=== PATIENT | female | born 1985 | race Caucasian/White ===

== ENCOUNTER 2021-04-10 19:59 | Emergency (ER) | payer OTHER, SELFPAY ==
[2021-04-10 20:24] VITALS: BP 107/78; PULSE 94; RESP 16; TEMP 36.4; O2SAT 98
--- NOTE | 2021-04-10 23:00 | PC.NURSE ---
decontamination technician assisted pt to restroom as pt stated she was unable to walk.
--- NOTE | 2021-04-11 01:25 | PC.NURSE ---
dietetic technician registered assisting pt to restroom.
--- NOTE | 2021-04-11 01:52 | ED.ABDPAIN ---
HPI - Abdominal Pain General Chief Complaint: Abdominal Pain Stated Complaint: n/v, abdominal pain X2 days Time Seen by Provider: 04/11/21 01:46 Source: RN notes reviewed History of Present Illness HPI narrative: Patient presents to emergency department from home for nausea vomiting diarrhea. Patient states that she has a chronic history of nausea vomiting and diarrhea since 2019 states she has been worked up in ERs before in the past and was told this was secondary to marijuana use states she quit using marijuana 2 weeks ago she states that she is post be seen a specialist at [facility] but cannot get in for another 2 and half months patient states that she has been having upper abdominal pain in the bilateral upper abdomen described as sharp and stabbing in nature associate with nausea vomiting and diarrhea with several episodes a day.. She states that she did take Zofran at 1030 this morning but not take any other medication she denies any fevers or chills chest pain shortness of breath or any other symptoms Related Data Allergies Allergy/AdvReac Type Severity Reaction Status Date / Time No Known Allergies Allergy Verified 04/10/21 20:29 Review of Systems Review of Systems: Gen.: Denies fevers or chills ENT: Denies congestion Respiratory: Denies shortness of breath or cough CV: Denies chest pain or palpitations GI: See HPI denies burning, urgency, frequency or hematuria Musculoskeletal: Denies back pain or muscle pain Neuro: Denies numbness, tingling, weakness or focal weakness Skin: Denies rash Except as documented, all other systems reviewed and negative [facility] Past Medical History Medical History (Updated 04/11/21 @ 05:53 by Damian Travis DO) Patient denies significant medical history Social History Social History (Updated 04/11/21 @ 01:53 by Damian Travis DO) Smoking status: Never smoker Exam Narrative: APPEARANCE: No acute distress, nontoxic, resting in bed HEENT: Normocephalic, atraumatic, OMM RESPIRATORY: No respiratory distress, clear to auscultation bilaterally with no rhonchi wheezing or rales CARDIOVASCULAR: RRR s murmur ABDOMINAL: Soft nondistended tender palpation epigastric and right upper quadrant left upper quadrant no tenderness right lower quadrant left lower quadrant no rebound or guard MUSCULOSKELETAl: Moves all extremities. No clubbing, cyanosis or edema. NEURO: Awake and alert. Following commands, speech normal, no focal deficits SKIN:: Warm, dry. Normal Color PSYCHIATRIC: Normal affect/mood Course Course Emergency Course: Patient states she is feeling much better at this time. States abdominal pain has resolved repeat abdominal exam soft nontender Patient able to drink in ED with no difficulty. Given p.o. potassium in ED shows IV potassium Patient states that they are feeling much better at this time. States abdominal pain has resolved. Repeat abdominal exam shows the patient's abdomen to be soft and nontender. Discussed with patient results of workup and diagnosis. Discussed need for follow-up with primary care physician, reasons to return to the emergency department in proper use of medication. Patient understands and agrees to current treatment plan Vital Signs Vital signs: Vital Signs Temperature 97.6 F 04/10/21 20:24 Pulse Rate 94 04/10/21 20:24 Respiratory Rate 16 04/10/21 20:24 Blood Pressure 107/78 04/10/21 20:24 Pulse Oximetry 98 04/10/21 20:24 Temperature 97.6 F 04/10/21 20:24 Pulse Rate 94 04/10/21 20:24 Respiratory Rate 16 04/10/21 20:24 Blood Pressure 107/78 04/10/21 20:24 Pulse Oximetry 98 04/10/21 20:24 MDM - Abdominal Pain MDM Narrative Medical decision making narrative: Patient's abdomen is soft without significant pain or signs of surgical abdomen on serial exams. Lab and x-ray evaluations are reviewed and patient is felt to be a reasonable candidate for outpatient management. Patient was instruct
[2021-04-11] MEDS: ONDANSETRON INJ 4 MG/2 ML VIAL IV PUSH (02:00)
[2021-04-11] MEDS: KETOROLAC 30 MG/ML VIAL (*BKC) IV PUSH (02:00)
[2021-04-11] MEDS: FAMOTIDINE 20 MG/2 ML VIAL IV PUSH (02:00)
[2021-04-11] MEDS: SODIUM CHLORIDE 0.9% IV 1,000 ML 999 ML IV CONT (02:01)
[2021-04-11 02:30] LABS: Basophils Absolute Auto 0.1 K/mm3 (0.0-0.1); Basophils Percent Auto 0.6 % (0.2-1.2); Eosinophils Absolute Auto 0.1 K/mm3 (0-0.3); Eosinophils Percent Auto 0.7 % (0-4.4); Hematocrit 36.7 % (37.0-47.0); Hemoglobin 12.5 g/dL (12.0-15.0); Immature Granulocyte Absolute 0.02 K/mm3 (0.00-0.031); Immature Granulocyte Percent A 0.2 % (0-0.5); Lymphocytes Absolute Auto 2.16 K/mm3 (0.9-3.2); Lymphocytes Percent Auto 26.1 % (18.3-44.2); Mean Corpuscular HGB Conc 34.1 g/dl (32-36); Mean Corpuscular Hemoglobin 31.6 pg (26-34); Mean Corpuscular Volume 92.9 fl (80-100); Monocytes Absolute Auto 0.7 K/mm3 (0.1-0.6); Monocytes Percent Auto 7.9 % (2.6-8.5); Neutrophils Absolute Auto 5.3 K/mm3 (1.3-6.7); Neutrophils Percent Auto 64.5 % (45.5-73.1); Platelet Count Result 226 k/mm3 (150-375); Red Blood Count 3.95 M/mm3 (4.2-5.4); White Blood Count 8.3 K/mm3 (4.5-10.0)
--- NOTE | 2021-04-11 02:41 | ECG_ITS ---
Measurements Intervals Nesbit Rate: 56 P: 80 UT: 134 QRS: 73 QRSD: 73 T: 52 QT: 431 QTc: 418 Interpretive Statements SINUS BRADYCARDIA WITH MARKED SINUS ARRHYTHMIA BORDERLINE ECG Electronically Signed On 04-11-2021 7:42:45 [employer] by Neal Martinez D.O.
[2021-04-11 02:42] LABS: Alanine Aminotransferase 18 U/L (4-35); Albumin Level 3.8 g/dL (3.5-5.1); Alkaline Phosphatase 52 U/L (38-126); Anion Gap 4 mmol/L (8-16); Aspartate Amino Transferase 21 U/L (14-36); Bilirubin,Total 0.6 mg/dL (0.2-1.3); Blood Urea Nitrogen 10 mg/dL (7-17); Carbon Dioxide 30 mmol/L (22-30); Chloride 100 mmol/L (98-107); Estimated CRCL calculation 69 ml/min; Estimated Glomerular Filt Rate > 60; Glucose 106 mg/dL (65-110); Lipase 110 U/L (23-300); Potassium 2.8 mmol/L (3.4-5.0); Sodium 134 mmol/L (137-145)
[2021-04-11 03:08] LABS: Magnesium 1.8 mg/dL (1.6-2.3)
[2021-04-11 04:05] LABS: Add Urine Microscopic? YES; Amorphous Sediment Urine Few; Appearance Urine Cloudy (Clear); Bacteria Urine Trace /hpf; Bilirubin Urine Negative (Negative); Blood Urine Negative (Negative); Color Urine Yellow (Yellow); Glucose Urine UA Negative (Negative); Ketones Urine Negative (Negative); Leukocyte Esterase Ur 2+ LEU/UL (Negative); Nitrate Urine Negative (Negative); Protein Urine Negative (Negative); RBC Urine 0-2 /hpf (0-2); Specific Grav Ur 1.011 (1.001-1.035); Squamous Epithelial Cell Urine Moderate /hpf (Few); Urobilinogen Urine Negative mg/dL (<2.0); WBC Urine 51-75 /hpf
[2021-04-11] MEDS: POTASSIUM CHLORIDE 20 MEQ TABLET 40 MEQ PO (04:06)
[2021-04-11 06:21] VITALS: PULSE 83; RESP 18; O2SAT 100
== END 2021-04-11 06:22 | disposition home or self-care (01) ==
PROVIDERS: Emergency Provider Emergency Medicine; PCP Physician Assistant
DX: R11.2 Nausea with vomiting, unspecified (principal); E87.6 Hypokalemia; N39.0 Urinary tract infection, site not specified; R10.10 Upper abdominal pain, unspecified
CPT/HCPCS: 36415; 80053; 81001; 81025; 83690; 83735; 85025; 87086; 93005; 96361; 96365; 96366; 96375; 99284; A9270; J0696; J1885; J2405; J3480; J7030; J7040

== ENCOUNTER 2021-08-20 14:44 | Emergency (ER) | payer OTHER, SELFPAY ==
[2021-08-20 14:48] VITALS: BP 125/68; PULSE 58; RESP 18; TEMP 36.8; O2SAT 100
[2021-08-20 14:58] LABS: Basophils Percent Auto 0.2 % (0.2-1.2); Hematocrit 40.4 % (37.0-47.0); Hemoglobin 13.6 g/dL (12.0-15.0); Immature Granulocyte Absolute 0.05 K/mm3 (0.00-0.031); Immature Granulocyte Percent A 0.4 % (0-0.5); Lymphocytes Absolute Auto 0.23 K/mm3 (0.9-3.2); Lymphocytes Percent Auto 1.9 % (18.3-44.2); Mean Corpuscular HGB Conc 33.7 g/dl (32-36); Mean Corpuscular Hemoglobin 32.3 pg (26-34); Mean Platelet Volume 8.6 fl (7.4-10.4); Monocytes Absolute Auto 0.2 K/mm3 (0.1-0.6); Monocytes Percent Auto 1.8 % (2.6-8.5); Neutrophils Absolute Auto 11.4 K/mm3 (1.3-6.7); Neutrophils Percent Auto 95.7 % (45.5-73.1); Platelet Count Result 249 k/mm3 (150-375); Red Blood Count 4.21 M/mm3 (4.2-5.4); Red Cell Distribution Width 13.6 % (11.5-14.5); White Blood Count 11.9 K/mm3 (4.5-10.0)
[2021-08-20 15:14] LABS: Alanine Aminotransferase 24 U/L (6-35); Albumin Level 4.3 g/dL (3.5-5.1); Alkaline Phosphatase 65 U/L (38-126); Anion Gap 8 mmol/L (8-16); Aspartate Amino Transferase 51 U/L (14-36); Bilirubin,Total 0.7 mg/dL (0.2-1.3); Blood Urea Nitrogen 16 mg/dL (7-17); Calcium 8.9 mg/dL (8.4-10.2); Carbon Dioxide 25 mmol/L (22-30); Chloride 105 mmol/L (98-107); Estimated CRCL calculation 68 ml/min; Estimated Glomerular Filt Rate > 60; Glucose 137 mg/dL (65-110); Lipase 45 U/L (23-300); Potassium 3.7 mmol/L (3.4-5.0); Sodium 138 mmol/L (137-145)
[2021-08-20] MEDS: LACTATED RINGERS 1,000 ML 999 ML IV CONT (15:20)
[2021-08-20] MEDS: METOCLOPRAMIDE HCL INJ 10 MG/2 ML VIAL IV PUSH (15:21)
[2021-08-20] MEDS: KETOROLAC 30 MG/ML VIAL (*BKC) IV PUSH (15:22)
[2021-08-20] MEDS: DICYCLOMINE HCL INJ 20 MG/2 ML VIAL IM (15:23)
--- NOTE | 2021-08-20 16:12 | ED.ABDPAIN ---
HPI - Abdominal Pain General Chief Complaint: Abdominal Pain Stated Complaint: abd pain/vomiting/diarrhea Time Seen by Provider: 08/20/21 14:47 Source: patient Mode of arrival: ambulatory History of Present Illness HPI narrative: 36-year-old female with history of abdominal pain awaiting consult with GI presents today with abdominal pain, nausea, vomiting, diarrhea that started yesterday. Patient denies fever, body aches, chills, or sick contacts. Patient denies . Patient denies urinary symptoms. Patient states this episode was similar to her previous episodes. Patient rating pain 10 out of a 10. Currently uses marijuana but states it is not on a daily basis. Related Data Allergies Allergy/AdvReac Type Severity Reaction Status Date / Time No Known Allergies Allergy Verified 05/10/21 13:34 Review of Systems Review of Systems: CONSTITUTIONAL: Denies fever, chills, or sweats. EYES: Denies visual changes, redness, or discharge. ENT: Denies rhinorrhea, congestion, sore throat, or otalgia. CARDIOVASCULAR: Denies chest pain, palpitations, or edema. RESPIRATORY: Denies cough or dyspnea. GASTROINTESTINAL: Denies abdominal pain, nausea, vomiting, or diarrhea. GENITOURINARY: Denies dysuria or hematuria. SKIN: Denies rash or itching. MUSCULOSKELETAL: Denies back pain, joint pain, or myalgia. NEUROLOGIC: Denies headache, numbness, dizziness, or weakness. PSYCHIATRIC: Denies anxiety or depression. PMFSH Past Medical History Medical History (Updated 08/20/21 @ 17:09 by Kelly Henriquez APRN) Diarrhea Nausea and vomiting Patient denies significant medical history Social History Social History (Updated 05/10/21 @ 13:35 by Virginia Meng [facility]) Smoking status: Current some day smoker Alcohol intake: current Alcohol use details: social Substance use: never Exam Narrative: GENERAL: Well-appearing, well-nourished, and in no acute distress. HEAD: Normocephalic, atraumatic. EYES: PERRLA and EOMI. ENT: Nares clear, no rhinorrhea or epistaxis. Mucous membranes moist. Oropharynx without tonsillar hypertrophy exudate or other lesions. Bilateral TMs pearly abad nonbulging NECK: Supple. No adenopathy or masses. No carotid bruits or JVD CHEST: Clear to auscultation. No respiratory distress. No wheezes rales or rhonchi HEART: Regular rate and rhythm. No murmur heard. Normal peripheral pulses. ABDOMEN: unable to assess abdomen upon 1st assessment. Patient constantly moving and moaning. After medication and upon reassessment abdomen Soft, nontender, nondistended, normal active bowel sounds. EXTREMITIES: Normal range of motion. No edema. SKIN: Warm, dry, no rash. NEURO: No focal deficits. Alert and oriented x3. PSYCH: Normal mood and affect. Course Course Emergency Course: HPI as noted. Patient is a marijuana user but denies using it daily. Patient with history of similar episodes in the past. Patient medicated with IV fluids, Toradol, dicyclomine, and Reglan. Patient denies pain, nausea, vomiting after medication. Abdomen was soft and nontender. White count 11.9. Patient wants to be discharged home. Vital Signs Vital signs: Vital Signs Temperature 36.8 C 08/20/21 14:48 Pulse Rate 58 L 08/20/21 14:48 Respiratory Rate 18 08/20/21 14:48 Blood Pressure 125/68 08/20/21 14:48 Pulse Oximetry 100 08/20/21 14:48 Temperature 36.8 C 08/20/21 14:48 Pulse Rate 62 08/20/21 17:17 Respiratory Rate 17 08/20/21 17:17 Blood Pressure 128/76 08/20/21 17:17 Pulse Oximetry 100 08/20/21 17:17 MDM - Abdominal Pain MDM Narrative Medical decision making narrative: HPI as noted. WBC 11.9, hemoglobin 13.6, sodium 138, potassium 3.7, chloride 105, urine without signs of infection. Suspect cannabis hyperemesis syndrome due to patient's history of cannabis use but she currently states she is not using often. Patient with follow-up with GI coming this month. Patient without complaints after m
[2021-08-20 16:34] LABS: Appearance Urine Cloudy (Clear); Bilirubin Urine Negative (Negative); Blood Urine 2+ (Negative); Color Urine Yellow (Yellow); Glucose Urine UA Negative (Negative); Ketones Urine 1+ mg/dL (Negative); Leukocyte Esterase Ur Negative LEU/UL (Negative); Nitrate Urine Negative (Negative); Protein Urine 1+ mg/dL (Negative); Urobilinogen Urine 0.2 mg/dL (<2.0); pH Urine 8.5 (5.0-9.0)
[2021-08-20 16:44] LABS: Amorphous Sediment Urine Few; Mucus Urine Rare /lpf; RBC Urine 21-50 /hpf (0-2); Squamous Epithelial Cell Urine Occasional /hpf (Few); WBC Urine 0-3 /hpf
[2021-08-20 16:45] LABS: Add Urine Microscopic? YES
[2021-08-20 17:17] VITALS: BP 128/76; PULSE 62; RESP 17; O2SAT 100
== END 2021-08-20 17:18 | disposition home or self-care (01) ==
PROVIDERS: Emergency Provider Nurse Practitioner Family; PCP Physician Assistant
DX: R11.2 Nausea with vomiting, unspecified (principal); F17.200 Nicotine dependence, unspecified, uncomplicated
CPT/HCPCS: 36415; 80053; 81001; 81025; 83690; 85025; 96361; 96372; 96374; 96375; 99284; J0500; J1885; J2765; J7120

== ENCOUNTER 2021-09-01 11:15 | Emergency (ER) | payer OTHER, SELFPAY ==
[2021-09-01 11:29] VITALS: BP 100/61; PULSE 78; RESP 18; TEMP 36.6; O2SAT 98
[2021-09-01 11:39] LABS: Basophils Absolute Auto 0.1 K/mm3 (0.0-0.1); Basophils Percent Auto 0.5 % (0.2-1.2); Eosinophils Percent Auto 0.1 % (0-4.4); Hematocrit 42.8 % (37.0-47.0); Hemoglobin 14.8 g/dL (12.0-15.0); Immature Granulocyte Absolute 0.03 K/mm3 (0.00-0.031); Immature Granulocyte Percent A 0.3 % (0-0.5); Lymphocytes Absolute Auto 0.96 K/mm3 (0.9-3.2); Lymphocytes Percent Auto 9.2 % (18.3-44.2); Mean Corpuscular HGB Conc 34.6 g/dl (32-36); Mean Corpuscular Hemoglobin 32.7 pg (26-34); Mean Corpuscular Volume 94.5 fl (80-100); Mean Platelet Volume 8.6 fl (7.4-10.4); Monocytes Absolute Auto 0.4 K/mm3 (0.1-0.6); Monocytes Percent Auto 3.7 % (2.6-8.5); Neutrophils Percent Auto 86.2 % (45.5-73.1); Platelet Count Result 271 k/mm3 (150-375); Red Blood Count 4.53 M/mm3 (4.2-5.4); Red Cell Distribution Width 12.9 % (11.5-14.5); White Blood Count 10.4 K/mm3 (4.5-10.0)
--- NOTE | 2021-09-01 11:48 | PC.NURSE ---
pt approached intake desk and states she feels better and is leaving.
[2021-09-01 11:49] LABS: Alanine Aminotransferase 19 U/L (6-35); Albumin Level 4.1 g/dL (3.5-5.1); Alkaline Phosphatase 54 U/L (38-126); Anion Gap 8 mmol/L (8-16); Aspartate Amino Transferase 25 U/L (14-36); Bilirubin,Total 0.2 mg/dL (0.2-1.3); Blood Urea Nitrogen 17 mg/dL (7-17); Calcium 9.1 mg/dL (8.4-10.2); Carbon Dioxide 26 mmol/L (22-30); Chloride 104 mmol/L (98-107); Estimated CRCL calculation 67 ml/min; Estimated Glomerular Filt Rate > 60; Glucose 112 mg/dL (65-110); Lipase 142 U/L (23-300); Potassium 3.5 mmol/L (3.4-5.0); Sodium 138 mmol/L (137-145)
[2021-09-01 12:08] LABS: Appearance Urine Clear (Clear); Bilirubin Urine Negative (Negative); Color Urine Yellow (Yellow); Glucose Urine UA Negative (Negative); Ketones Urine Negative (Negative); Leukocyte Esterase Ur Negative LEU/UL (Negative); Nitrate Urine Negative (Negative); Protein Urine Negative (Negative); Urobilinogen Urine 0.2 mg/dL (<2.0); pH Urine 8.5 (5.0-9.0)
[2021-09-01 12:15] LABS: Add Urine Microscopic? YES; Bacteria Urine Trace /hpf; Blood Urine Trace-Intact (Negative); Squamous Epithelial Cell Urine Occasional /hpf (Few); WBC Urine 0-3 /hpf
== END 2021-09-01 11:54 | disposition left against medical advice (07) ==
LOC: ANHED 11:53
PROVIDERS: Emergency Provider Emergency Medicine
DX: R10.12 Left upper quadrant pain (principal)
CPT/HCPCS: 36415; 80053; 81001; 83690; 85025; 99199

== ENCOUNTER 2022-02-05 19:50 | Emergency (ER) | payer OTHER, SELFPAY ==
[2022-02-05 20:10] VITALS: BP 139/67; PULSE 61; RESP 22; TEMP 36; O2SAT 100
[2022-02-05 20:23] LABS: Basophils Absolute Auto 0.1 K/mm3 (0.0-0.1); Basophils Percent Auto 0.6 % (0.2-1.2); Eosinophils Absolute Auto 0.1 K/mm3 (0-0.3); Eosinophils Percent Auto 0.7 % (0-4.4); Hematocrit 42.7 % (37.0-47.0); Hemoglobin 14.4 g/dL (12.0-15.0); Immature Granulocyte Absolute 0.03 K/mm3 (0.00-0.031); Immature Granulocyte Percent A 0.4 % (0-0.5); Lymphocytes Percent Auto 13.2 % (18.3-44.2); Mean Corpuscular HGB Conc 33.7 g/dl (32-36); Mean Corpuscular Hemoglobin 31.6 pg (26-34); Mean Corpuscular Volume 93.8 fl (80-100); Mean Platelet Volume 8.7 fl (7.4-10.4); Monocytes Absolute Auto 0.6 K/mm3 (0.1-0.6); Monocytes Percent Auto 7.6 % (2.6-8.5); Neutrophils Absolute Auto 6.5 K/mm3 (1.3-6.7); Neutrophils Percent Auto 77.5 % (45.5-73.1); Platelet Count Result 282 k/mm3 (150-375); Red Blood Count 4.55 M/mm3 (4.2-5.4); Red Cell Distribution Width 12.1 % (11.5-14.5); White Blood Count 8.3 K/mm3 (4.5-10.0)
[2022-02-05 20:36] LABS: Alanine Aminotransferase 18 U/L (6-35); Albumin Level 4.3 g/dL (3.5-5.1); Alkaline Phosphatase 83 U/L (38-126); Anion Gap 10 mmol/L (8-16); Aspartate Amino Transferase 31 U/L (14-36); Bilirubin,Total 0.8 mg/dL (0.2-1.3); Blood Urea Nitrogen 10 mg/dL (7-17); Calcium 8.9 mg/dL (8.4-10.2); Carbon Dioxide 24 mmol/L (22-30); Chloride 103 mmol/L (98-107); Estimated CRCL calculation 70 ml/min; Estimated Glomerular Filt Rate > 60; Glucose 111 mg/dL (65-110); Lipase 72 U/L (23-300); Potassium 3.2 mmol/L (3.4-5.0); Sodium 137 mmol/L (137-145)
--- NOTE | 2022-02-05 21:43 | PC.NURSE ---
pt left with mother, stated that they would leave and go to [facility]. asked to return if symptoms increased or worsened. pt agreeable. offered to put pt in car, they politely refused.
== END 2022-02-05 21:51 | disposition left against medical advice (07) ==
LOC: ANHED 21:48
PROVIDERS: Emergency Provider Emergency Medicine
DX: R10.9 Unspecified abdominal pain (principal)
CPT/HCPCS: 36415; 80053; 83690; 85025; 99199

== ENCOUNTER 2023-02-03 18:36 | Observation (INO) | payer OTHER, SELFPAY ==
--- NOTE | 2023-02-03 18:36 | OBADM ---
This patient, Kisha Seals, admitted to the OB room OB Post 116 for observation. Patient/family oriented to hospital policies and general routines including ID bracelet, bed and alarms, visiting hours, pain management, procedures, bathroom and other care routines, personal items, smoking policy, room service/diet, and visiting hours. Patient/Family are encouraged to report perceived risks to care and to ask questions if they do not understand what they are told or what they should do.
[2023-02-03 18:56] VITALS: RESP 16; TEMP 36.5
[2023-02-03 19:05] VITALS: BP 103/47; PULSE 59
--- NOTE | 2023-02-03 19:09 | PC.NURSE ---
1855- Patient arrived to OB unit with complaint of right sided pelvic pain. Upon assessment patient state pain has been present for a couple weeks and she has notified OB office of the pain at last OB appointment. Patient states the pain is intermittent and states she experiences it after movements. Abdomen palpates soft. Patient reports tenderness with palpation on her right side of her pelvis. Patient states when she is experiencing the pain is moves down her right leg. Patient denies any vaginal bleeding or discharge. Patient reports active movements. VSS upon arrival.
[2023-02-03 19:15] VITALS: BP 95/60; PULSE 58
--- NOTE | 2023-02-03 19:21 | PC.NURSE ---
Notified Dr. Ambrosio of patient arrival to OB unit. Dr. Ambrosio updated on maternal and assessments. Patient complaint of intermittent right pelvic pain that has been occurring over multiple weeks. Abdomen palpates soft and non-tender, right pelvis/groin is tender with palpation. Patient reports increased pain with movement with radiation down right leg. Orders received.
[2023-02-03 19:31] VITALS: BP 98/52; PULSE 59
[2023-02-03] MEDS: CYCLOBENZAPRINE HCL 10 MG TABLET PO (19:46)
--- NOTE | 2023-02-03 20:34 | PC.NURSE ---
Discharge instructions reviewed with patient. Patient states her pain has improved since medication. Patient instructed to call Cullen Esparza CNM office to follow up this week. labor precautions reviewed with patient. Patient educated on support belt and encouraged to use one. Patient states understanding of all discharge education and instruction and left ambulating at 2033.
[2023-02-03 20:39] LABS: Appearance Urine Clear (Clear); Bilirubin Urine Negative (Negative); Blood Urine Negative (Negative); Color Urine Yellow (Yellow); Glucose Urine UA Negative (Negative); Ketones Urine Negative (Negative); Leukocyte Esterase Ur Negative LEU/UL (Negative); Nitrate Urine Negative (Negative); Protein Urine Negative (Negative); Specific Grav Ur 1.001 (1.001-1.035); Urobilinogen Urine 0.2 mg/dL (<2.0)
[2023-02-03 20:49] LABS: Add Urine Microscopic? NO
--- NOTE | 2023-02-05 08:11 | PM.OBTRLD ---
OB - Triage/Final Diagnosis Visit Information Date of evaluation: 02/03/23 Reason for evaluation: other (lower right quadrant pain) Comments/Additional reasons for admission: I have assessed the risk for this patient, Kisha Seals, and determined that she would benefit from observation care. Evaluation Laboratory results: Laboratory Tests 02/03/23 20:33 Urine Color Yellow Urine Appearance Clear Urine pH 8.0 Ur Specific [place] 1.001 Urine Protein Negative Urine Glucose (UA) Negative Urine Ketones Negative Ur Blood (Man) Negative Urine Nitrate Negative Urine Bilirubin Negative Urine Urobilinogen 0.2 Leukocyte Esterase Rfl Negative
== END 2023-02-03 20:34 | disposition home or self-care (01) ==
PROVIDERS: Admitting Provider Obstetrics & Gynecology; Visit Provider Obstetrics & Gynecology
DX: O26.892 Other specified pregnancy related conditions, second trimester (principal); R10.9 Unspecified abdominal pain; Z3A.16 16 weeks gestation of pregnancy
CPT/HCPCS: 81003; A9270; G0378; G0379

== ENCOUNTER 2023-02-08 11:52 | Observation (INO) | payer OTHER, SELFPAY ==
--- NOTE | ~2023-02-08 | MR_ITS ---
EXAMINATION: MR abdomen wo con DATE: 02/08/2023 15:48 INDICATION: Right lower quadrant abdominal pain TECHNIQUE: Magnetic resonance imaging (MRI) of the abdomen was performed without intravenous contrast . Sequences included axial, sagittal and coronal FS 2D-FIESTA, axial and coronal T2-weighted SS-FSE, axial STIR FSE, sagittal T2-weighted FS SS-FSE, axial dual-echo T1-weighted FSPGR, and axial T1-weigh pete LAVA. COMPARISON: None. FINDINGS: No pleural effusion. Status post cholecystectomy. Liver, spleen, pancreas, bilateral adrenal glands a nd left kidney are normal. 7 mm T2 hyperintense cyst at the upper pole of the right kidney. No hydron ephrosis. Normal low signal intensity gas-filled appendix along the tip the cecum without surrounding inflammatory stranding to suggest acute appendicitis. No dilated bowel to suggest obstruction. Enlar ged gravid uterus with fetus in vertex position which is not diagnostically evaluated. The placenta i s posterior and appears to extend a few millimeter across the internal cervical os on sagittal series 12, images 8-12. Normal cervical length of 5.0 cm. There are bilateral prominent parametrial and sol ining gonadal veins consistent with normal physiologic response to . Normal bladder. No free fluid in the abdomen or pelvis. No pathologically enlarged abdominal or pelvic lymphadenopathy. 20 d egree lumbar levoscoliosis with mild thoracolumbar spondylosis. IMPRESSION: 1. Normal appendix. No acute intra-abdominal/pelvic process. 2. Late stage with single fetus in vertex position. 3. Placenta previa with the caudal margin of the posterior placenta extending a few millimeter across the internal cervical os. Reviewed, dictated and finalized at location A.
[2023-02-08 11:57] VITALS: BP 108/58; PULSE 104; RESP 16; TEMP 36.8; O2SAT 100
--- NOTE | 2023-02-08 12:29 | ED.GENADULT ---
HPI - General Adult General Chief complaint: OB/Uterine Contractions Stated complaint: cramping, abdominal pain in Time Seen by Provider: 02/08/23 12:01 History of Present Illness HPI narrative: Patient is a 37-year-old female who is 17 weeks gestation that presents ER with right-sided abdominal pain. Patient initially began having discomfort on 02/05/2023 where she is having discomfort in her pelvic region and going into her hip. The pain has since increased and is located along the right side of her abdomen and is noticed with palpation of the right lower quadrant in the right upper quadrant. She has increased pain with going over bumps. She has had dysuria for 2 days as well as urinary frequency. No fevers or chills or sweats. No known sick contacts. Patient no longer has a gallbladder but she does still have an appendix. She has felt the baby move today. She reports some thick discharge that began today as well. No vaginal bleeding. Related Data Home Medications Medication Instructions Recorded Confirmed acetaminophen 500 mg tablet 500 mg PO Q6H PRN Pain 02/08/23 02/08/23 vit#24-iron amino acid 1 tablet PO DAILY 02/08/23 02/08/23 chelat-folic acid 30 mg-975 mcg tablet Allergies Allergy/AdvReac Type Severity Reaction Status Date / Time No Known Allergies Allergy Verified 02/08/23 16:53 Review of Systems Review of Systems: All systems reviewed & are unremarkable except as noted in HPI and below Constitutional: Constitutional: Denies chills, Reports fatigue and Denies fever(s) ENT: Denies nasal congestion and Denies sore throat Cardiovascular: Cardiovascular: Reports no additional cardiovascular complaints Respiratory: Respiratory: Reports no additional respiratory complaints Gastrointestinal: Gastrointestinal: Reports abdominal pain, Denies diarrhea, Reports nausea and Denies vomiting Genitourinary: Genitourinary: Reports nocturia, Reports dysuria, Reports pelvic pain and Denies flank pain Musculoskeletal: Musculoskeletal: Reports no additional musculoskeletal complaints Integumentary/Breasts: Skin/Breast: Reports system reviewed and no additional complaints, except as docu PMFSH Past Medical History Medical History (Updated 02/08/23 @ 21:53 by Natanael Aldridge MD) Diarrhea Nausea and vomiting Patient denies significant medical history Surgical History Surgical History (Updated 02/08/23 @ 12:32 by Natanael Aldridge MD) History of cholecystectomy Social History Social History Smoking status: Never smoker Alcohol intake: never Alcohol use details: social Substance use: never Lack of Transportation: No Lack of Food: Never True Current Housing: I Have Housing Concerned About Future Housing: No Difficulty Paying Gas/Electric Bills: No Difficulty Paying for Meds: No Currently Unemployed: No Education: Associate Degree Difficulty w/ Childcare or Family Care: No Spiritual care concerns: No Exam Narrative: GENERAL: Fatigued and uncomfortable appearing, well-nourished, and in no acute distress. HEAD: Normocephalic, atraumatic. ENT: Mucous membranes moist. CHEST: Clear to auscultation. No respiratory distress. HEART: Regular rate and rhythm. Normal peripheral pulses. ABDOMEN: Soft, tender to palpation in the right lower quadrant and right upper quadrant, nondistended. Uterus palpated just below the umbilicus. EXTREMITIES: Normal range of motion. No edema. Increased pain in the abdomen with straight leg raise and internal/external rotation of the hip SKIN: Warm, dry, no rash. NEURO: Alert and oriented x3. PSYCH: Normal mood and affect. Course Course Emergency Course: Discussed case with Dr. Engel. Admit to his service for IV antibiotics for pyelonephritis and IV fluids. We will also obtain MRI of the abdomen without contrast to evaluate for possible appendicitis given right
[2023-02-08 12:32] LABS: Basophils Percent Auto 0.2 % (0.2-1.2); Eosinophils Absolute Auto 0.1 K/mm3 (0-0.3); Eosinophils Percent Auto 0.4 % (0-4.4); Hemoglobin 12.4 g/dL (12.0-15.0); Immature Granulocyte Absolute 0.13 K/mm3 (0.00-0.031); Immature Granulocyte Percent A 0.7 % (0-0.5); Lymphocytes Absolute Auto 0.99 K/mm3 (0.9-3.2); Lymphocytes Percent Auto 5.6 % (18.3-44.2); Mean Corpuscular HGB Conc 33.5 g/dl (32-36); Mean Corpuscular Volume 92.5 fl (80-100); Mean Platelet Volume 8.7 fl (7.4-10.4); Monocytes Percent Auto 5.5 % (2.6-8.5); Neutrophils Absolute Auto 15.4 K/mm3 (1.3-6.7); Neutrophils Percent Auto 87.6 % (45.5-73.1); Platelet Count Result 237 k/mm3 (150-375); Red Cell Distribution Width 13.4 % (11.5-14.5); White Blood Count 17.6 K/mm3 (4.5-10.0)
[2023-02-08 12:45] LABS: Alanine Aminotransferase 13 U/L (6-35); Albumin Level 3.9 g/dL (3.5-5.1); Alkaline Phosphatase 76 U/L (38-126); Anion Gap 7 mmol/L (8-16); Aspartate Amino Transferase 26 U/L (14-36); Bilirubin,Total 0.7 mg/dL (0.2-1.3); Blood Urea Nitrogen 7 mg/dL (7-17); Carbon Dioxide 22 mmol/L (22-30); Chloride 103 mmol/L (98-107); Estimated CRCL calculation 111 ml/min; Estimated Glomerular Filt Rate > 60; Glucose 90 mg/dL (65-110); Lipase 40 U/L (23-300); Potassium 3.6 mmol/L (3.4-5.0); Sodium 132 mmol/L (137-145)
[2023-02-08] MEDS: SODIUM CHLORIDE 0.9% IV 1,000 ML 999 ML IV CONT (12:53)
[2023-02-08] MEDS: MORPHINE SULFATE (*CRX) 4 MG/ML INJ IV PUSH ×4 (12:54→23:39)
[2023-02-08] MEDS: ONDANSETRON INJ 4 MG/2 ML VIAL IV PUSH ×2 (12:55→15:59)
[2023-02-08 13:05] LABS: Appearance Urine Cloudy (Clear); Bacteria Urine Rare /hpf; Bilirubin Urine Negative (Negative); Blood Urine 2+ (Negative); Color Urine Yellow (Yellow); Glucose Urine UA Negative (Negative); Ketones Urine Negative (Negative); Leukocyte Esterase Ur 2+ LEU/UL (Negative); Nitrate Urine Negative (Negative); Non Pathogenic Casts 0-2; Protein Urine Trace mg/dL (Negative); RBC Urine 21-50 /hpf (0-2); Specific Grav Ur 1.018 (1.001-1.035); Squamous Epithelial Cell Urine Few /hpf (Few); Urobilinogen Urine 0.2 mg/dL (<2.0); WBC Urine 21-50 /hpf; pH Urine 6.5 (5.0-9.0)
[2023-02-08 13:07] LABS: Add Urine Microscopic? YES
--- NOTE | 2023-02-08 14:58 | PC.NURSE ---
pt to MRI
[2023-02-08] MEDS: SODIUM CHLORIDE 0.9% IV 1,000 ML 125 ML IV CONT (15:59)
[2023-02-08 16:27] VITALS: BP 102/46; PULSE 83; RESP 18; TEMP 36.7; O2SAT 98
[2023-02-08] MEDS: ACETAMINOPHEN 500 MG TABLET 1000 MG PO (17:35)
[2023-02-08 21:40] VITALS: BP 90/47; PULSE 86; RESP 18; TEMP 36.8; O2SAT 100
[2023-02-08 21:45] VITALS: BMI 23.0
[2023-02-09] MEDS: SODIUM CHLORIDE 0.9% IV 1,000 ML 125 ML IV CONT (01:17)
[2023-02-09] MEDS: ACETAMINOPHEN 500 MG TABLET 1000 MG PO ×2 (01:24→10:20)
[2023-02-09] MEDS: MORPHINE SULFATE (*CRX) 4 MG/ML INJ IV PUSH ×2 (03:34→06:57)
[2023-02-09 05:10] VITALS: BP 91/48; PULSE 69; RESP 20; TEMP 36.4; O2SAT 100
[2023-02-09] MEDS: ONDANSETRON INJ 4 MG/2 ML VIAL IV PUSH (06:57)
--- NOTE | 2023-02-09 08:14 | PM.IMHP ---
H&P: HPI History of Present Illness Date/Time: 02/09/23 08:14 Chief Complaint: Flank pain Narrative: 37-year-old female with flank pain. She presented the ER with flank pain. She has a 17 week gestation. She had white cells on the the leukoesterase in her urinalysis. She has a tender flank. We will treat her as she has pyelonephritis. She has been receiving Rocephin. She will receive another dose in a few hours. She had an MRI of the abdomen and pelvis. She has a marginal placenta previa. She was informed of the concerns there given precautions. No evidence of stones or appendicitis. She has improved with her pain over the last 18 hours. Will continue to treat her for pyelonephritis. She was discharged later today with oral antibiotics. She will receive 1 more dose of Rocephin. Review of Systems Review of Systems: All systems reviewed & are unremarkable except as noted in HPI and below Constitutional: Constitutional: Denies chills, Denies fatigue, Denies fever(s) and Denies weakness Eyes: Eyes: Denies blurry vision, Denies change in vision, Denies loss of peripheral vision, Denies loss of vision, Denies other visual disturbances and Denies eye pain ENT: Denies vertigo, Denies dizziness, Denies hearing loss, Denies mouth pain, Denies nasal obstruction, Denies neck mass and Denies neck pain Cardiovascular: Cardiovascular: Denies chest pain, Denies diaphoresis, Denies syncope, Denies leg edema and Denies dyspnea Respiratory: Respiratory: Denies chest congestion, Denies cough, Denies hemoptysis, Denies dyspnea and Denies wheezing Gastrointestinal: Gastrointestinal: Denies abdominal pain, Denies constipation, Denies diarrhea, Denies nausea and Denies vomiting Genitourinary: Genitourinary: Denies hematuria, Denies change in libido, Denies nocturia, Denies genital lesions, Denies flank pain and Denies urinary urgency Musculoskeletal: Musculoskeletal: Denies abnormal gait, Denies back pain, Denies myalgias, Denies arthralgias, Denies joint swelling, Denies muscle weakness and Denies neck pain Integumentary/Breasts: Skin/Breast: Denies swelling, Denies breast pain, Denies breast mass, Denies dry skin, Denies nipple discharge, Denies unusual bruising and Denies jaundice Neurologic: Denies Neuro-related abnormal movements, Denies Abnormal speech present, Denies abnormal gait, Denies behavioral changes, Denies confusion, Denies vertigo, Denies dizziness, Denies syncope, Denies loss of vision, Denies memory loss, Denies convulsions and Denies weakness Psychiatric: Psychiatric: Denies abnormal sleep pattern, Denies behavioral changes, Denies change in libido, Denies confusion, Denies depression, Denies anhedonia and Denies memory loss Endocrine: Endocrine: Reports no additional endocrine complaints, Denies change in libido and Denies fatigue Hematologic/Lymphatic: Hematologic/Lymphatic: Reports no additional hematologic/lymphatic complaints Allergic/Immunologic: Allergic/Immunologic: Reports no additional allergic/immunologic complaints and Denies wheezing PMFSH Past Medical History Medical History (Updated 02/08/23 @ 21:53 by Natanael Aldridge MD) Diarrhea Nausea and vomiting Patient denies significant medical history Surgical History Surgical History (Updated 02/08/23 @ 12:32 by Natanael Aldridge MD) History of cholecystectomy Social History Social History Smoking status: Never smoker Alcohol intake: never Alcohol use details: social Substance use: never Lack of Transportation: No Lack of Food: Never True Current Housing: I Have Housing Concerned About Future Housing: No Difficulty Paying Gas/Electric Bills: No Difficulty Paying for Meds: No Currently Unemployed: No Education: Associate Degree Difficulty w/ Childcare or Family Care: No Spiritual care concerns: No Meds Home Medications and Allergies Home Medications Medication
--- NOTE | 2023-02-09 11:15 | PC.NURSE ---
Gave patient medication at 1020, forgot to save MAR after administration.
--- NOTE | 2023-03-03 21:47 | PM.DS ---
DS: Admitting Diagnosis Discharge Date 02/09/23 Admitting Diagnosis pyelonephritis DS: Discharge Diagnosis Discharge Diagnosis (1) Pyelonephritis: Code(s): N12 - Tubulo-interstitial nephritis, not specified as acute or chronic Status: Acute DS: Summary Hospital Course Hospital Course: 37-year-old female at 17 weeks' gestation to labor and delivery for pyelonephritis. She was treated with antibiotics, was monitored, she was discharged hospital day 1. She was sent home with antibiotics. Time Spent with Patient Time attestation: Total time spent providing and/or coordinating discharge services: Discharge Plan Discharge Consulting providers: Fabricio White Discharging Clinician: Raya Engel Patient Disposition: Home, Self-Care Activity: pelvic rest Diet: regular Patient Instructions: Antibiotic Form Stand Alone Forms: General Discharge Information Follow-up/Referrals: Raya Engel MD [Physician] - Discharge Medications: New cephalexin 500 mg capsule 500 mg PO Q8H Qty: 30 0RF Continued acetaminophen 500 mg Tablet 500 mg PO Q6H PRN (Reason: Pain) PNV no.[id number] acid 30-975 mg-mcg Tablet 1 tablet PO DAILY Date of admission: 02/08/23 13:50 Primary Care Provider: UNKNOWN,DOCTOR Admitting Provider: Raya Engel Attending physician on admission: Raya Engel Condition: Stable
== END 2023-02-09 11:15 | disposition home or self-care (01) ==
LOC: ANHED 12:09 → ANH3MEDSUR 14:57 → ANH2MED 15:40
PROVIDERS: Admitting Provider Obstetrics & Gynecology; Emergency Provider Emergency Medicine; Visit Provider Obstetrics & Gynecology
DX: O23.01 Infections of kidney in pregnancy, first trimester (principal); B96.1 Klebsiella pneumoniae [K. pneumoniae] as the cause of diseases classified elsewhere; Z3A.17 17 weeks gestation of pregnancy; Z79.82 Long term (current) use of aspirin; Z79.899 Other long term (current) drug therapy
CPT/HCPCS: 36415; 74181; 80053; 81001; 83690; 85025; 87040; 87077; 87086; 87186; 96361; 96365; 96374; 96375; 96376; 99285; A9270; A9577; G0378; G0379; J0696; J2270; J2405; J7030

== ENCOUNTER 2023-03-24 08:04 | Emergency (ER) | payer OTHER, SELFPAY ==
[2023-03-24 08:10] VITALS: BP 112/52; PULSE 82; RESP 20; TEMP 36.3; O2SAT 98
--- NOTE | 2023-03-24 08:19 | ED.URI ---
HPI - URI/Sore Throat General Chief Complaint: Upper Respiratory Infection Stated Complaint: Sore Throat History of Present Illness HPI Narrative: Patient presents with a sore throat. Patient denies any trouble swallowing no drooling. Patient states her 19-year-old daughter was diagnosed with strep throat yesterday. Patient is currently 6 months with no abdominal pain no pelvic pain no vaginal discharge and no urinary symptoms. Patient states normal movement and no problems with this . Related Data Home Medications Medication Instructions Recorded Confirmed vits no.126-ferrous fum 1 tablet PO DAILY 03/24/23 03/24/23 28 mg iron-folic acid 800 mcg tablet (Classic ) Allergies Allergy/AdvReac Type Severity Reaction Status Date / Time No Known Allergies Allergy Verified 03/24/23 08:25 Review of Systems Review of Systems: CONSTITUTIONAL: Denies chills, or sweats. Reports fever and generalized body aches EYES: Denies visual changes, redness, or discharge. ENT: Denies otalgia. Reports nasal congestion runny nose and sore throat CARDIOVASCULAR: Denies chest pain, palpitations, or edema. RESPIRATORY: Denies dyspnea. Reports occasional cough GASTROINTESTINAL: Denies abdominal pain, nausea, vomiting, or diarrhea. GENITOURINARY: Denies dysuria or hematuria. SKIN: Denies rash or itching. MUSCULOSKELETAL: Denies back pain, joint pain, or myalgia. Reports generalized body aches NEUROLOGIC: Denies headache, numbness, or weakness. PSYCHIATRIC: Denies anxiety or depression. [facility] Past Medical History Medical History (Updated 03/24/23 @ 08:30 by GABRIEL Blackwell) Diarrhea Nausea and vomiting Patient denies significant medical history Surgical History Surgical History (Updated 02/08/23 @ 12:32 by Natanael Aldridge MD) History of cholecystectomy Social History Social History Smoking status: Never smoker Alcohol intake: never Alcohol use details: social Substance use: never Lack of Transportation: No Lack of Food: Never True Current Housing: I Have Housing Concerned About Future Housing: No Difficulty Paying Gas/Electric Bills: No Difficulty Paying for Meds: No Currently Unemployed: No Education: Associate Degree Difficulty w/ Childcare or Family Care: No Spiritual care concerns: No Comments At time of signature, agree with nursing past medical, surgical, social and family history. There is no relevant family history pertinent to the presenting complaint Exam Narrative: The patient is a well-developed, well-nourished in no acute distress. SKIN: Skin is warm and dry without erythema, swelling or exudate. There is good turgor. No tenting. HEAD: Atraumatic. Normocephalic. No temporal or scalp tenderness. EYES: Moist and bright. Sclera and conjunctivae normal. No discharge. PERRLA. Extraocular motions intact. Gross visual acuity intact. EARS: Pinna is normal shape and contour. Clear external auditory canals. TM pearly lundberg with good cone of light, no erythema or suppuration. Bilateral cerumen noted no gross hearing deficit. NOSE: pink, moist mucosa with good air movement. Clear rhinorrhea without nasal flaring. Septum midline. Mouth: moist mucous membranes. Mild pharyngeal erythema no exudate no trismus mild postnasal drainage able to open mouth fully THROAT; mild erythema noted to posterior oropharynx with moderate postnasal drainage. Without exudate or ulceration.. Uvula midline. Normal movement of soft palate. NECK: Supple and nontender with full range of motion without discomfort. No meningeal signs. LUNGS: Equal and bilateral breath sounds without wheezes, rales or rhonchi. CHEST: The chest wall is without retractions or use of accessory muscles. HEART: Has a regular rate and rhythm without murmur, gallops, click or rub. ABDOMEN: Soft, nontender with positive active bowel sounds.
== END 2023-03-24 08:35 | disposition home or self-care (01) ==
PROVIDERS: Emergency Provider Nurse Practitioner Family; PCP Physician Assistant
DX: O99.519 Diseases of the respiratory system complicating pregnancy, unspecified trimester (principal); Z3A.00 Weeks of gestation of pregnancy not specified; J02.9 Acute pharyngitis, unspecified
CPT/HCPCS: 87880; 99213; G0463

== ENCOUNTER 2023-04-20 13:58 | Observation (INO) | payer OTHER, SELFPAY ==
[2023-04-20] VITALS (15 sets, daily range): BP systolic 96–117; BP diastolic 57–67; PULSE 25–121; RESP 16; TEMP 37; O2SAT 66–99; BMI 24.4
--- NOTE | 2023-04-20 14:59 | OBADM ---
This patient, Kisha Seals, admitted to the OB room 113 for observation for RUQ abdominal pain. Patient/family oriented to hospital policies and general routines including ID bracelet, bed and alarms, visiting hours, pain management, procedures, bathroom and other care routines, personal items, smoking policy, room service/diet, and visiting hours. Patient/Family are encouraged to report perceived risks to care and to ask questions if they do not understand what they are told or what they should do.
[2023-04-20 15:04] LABS: Appearance Urine Cloudy (Clear); Bacteria Urine 3+ /hpf; Bilirubin Urine Negative (Negative); Blood Urine Negative (Negative); Color Urine Yellow (Yellow); Glucose Urine UA Negative (Negative); Ketones Urine Negative (Negative); Leukocyte Esterase Ur 1+ LEU/UL (Negative); Need Manual Microscopic Reviewed; Nitrate Urine Negative (Negative); Non Pathogenic Casts 0-2; Protein Urine Negative (Negative); RBC Urine 0-2 /hpf (0-2); Specific Grav Ur 1.001 (1.001-1.035); Squamous Epithelial Cell Urine None seen /hpf (Few); Urobilinogen Urine 0.2 mg/dL (<2.0); pH Urine 7.5 (5.0-9.0)
[2023-04-20 15:05] LABS: Add Urine Microscopic? YES
[2023-04-20 15:47] LABS: Basophils Absolute Auto 0.1 K/mm3 (0.0-0.1); Basophils Percent Auto 0.4 % (0.2-1.2); Eosinophils Absolute Auto 0.2 K/mm3 (0-0.3); Eosinophils Percent Auto 0.9 % (0-4.4); Hematocrit 31.5 % (37.0-47.0); Immature Granulocyte Absolute 0.22 K/mm3 (0.00-0.031); Immature Granulocyte Percent A 1.3 % (0-0.5); Lymphocytes Absolute Auto 1.32 K/mm3 (0.9-3.2); Lymphocytes Percent Auto 7.7 % (18.3-44.2); Mean Corpuscular HGB Conc 31.7 g/dl (32-36); Mean Corpuscular Hemoglobin 29.9 pg (26-34); Mean Corpuscular Volume 94.3 fl (80-100); Mean Platelet Volume 8.6 fl (7.4-10.4); Monocytes Absolute Auto 1.6 K/mm3 (0.1-0.6); Monocytes Percent Auto 9.3 % (2.6-8.5); Neutrophils Absolute Auto 13.8 K/mm3 (1.3-6.7); Neutrophils Percent Auto 80.4 % (45.5-73.1); Platelet Count Result 273 k/mm3 (150-375); Red Blood Count 3.34 M/mm3 (4.2-5.4); Red Cell Distribution Width 13.2 % (11.5-14.5); White Blood Count 17.1 K/mm3 (4.5-10.0)
[2023-04-20 15:58] LABS: Alanine Aminotransferase 11 U/L (6-35); Albumin Level 3.2 g/dL (3.5-5.1); Alkaline Phosphatase 128 U/L (38-126); Anion Gap 5 mmol/L (8-16); Aspartate Amino Transferase 18 U/L (14-36); Bilirubin,Total 0.3 mg/dL (0.2-1.3); Blood Urea Nitrogen 6 mg/dL (7-17); Calcium 8.5 mg/dL (8.4-10.2); Carbon Dioxide 23 mmol/L (22-30); Chloride 105 mmol/L (98-107); Estimated CRCL calculation 94 ml/min; Estimated Glomerular Filt Rate > 60; Glucose 85 mg/dL (65-110); Sodium 133 mmol/L (137-145)
--- NOTE | 2023-05-13 13:42 | PM.OBTRLD ---
OB - Triage/Final Diagnosis Visit Information Comments/Additional reasons for admission: I have assessed the risk for this patient, Kisha Seals, and determined that she would benefit from observation care. Evaluation Laboratory results: Laboratory Tests 04/20/23 04/20/23 14:45 15:33 WBC 17.1 H RBC 3.34 L Hgb 10.0 L Hct 31.5 L MCV 94.3 MCH 29.9 MCHC 31.7 L RDW 13.2 Plt Count 273 MPV 8.6 Immature Gran % (Auto) 1.3 H Neut % (Auto) 80.4 H Lymph % (Auto) 7.7 L Kerr % (Auto) 9.3 H Eos % (Auto) 0.9 Baso % (Auto) 0.4 Lymph # (Auto) 1.32 Kerr # (Auto) 1.6 H Eos # (Auto) 0.2 Baso # (Auto) 0.1 Abs Immat Gran (auto) 0.22 H Absolute Neuts (auto) 13.8 H Absolute Nucleated RBC 0.0 Nucleated RBC % 0.0 Sodium 133 L Potassium 4.0 Chloride 105 Carbon Dioxide 23 Anion Gap 5 L BUN 6 L Creatinine 0.60 L Estim Creat Clear Calc 94 Estimated GFR > 60 Glucose 85 Calcium 8.5 Total Bilirubin 0.3 AST 18 ALT 11 Alkaline Phosphatase 128 H Total Protein 7.0 Albumin 3.2 L Urine Color Yellow Urine Appearance Cloudy H Urine pH 7.5 Ur Specific [place] 1.001 Urine Protein Negative Urine Glucose (UA) Negative Urine Ketones Negative Ur Blood (Man) Negative Urine Nitrate Negative Urine Bilirubin Negative Urine Urobilinogen 0.2 Add Ur Microanalysis Reviewed Leukocyte Esterase Rfl 1+ H Urine RBC 0-2 Urine WBC 6-10 H Ur Squamous Epith Cells None seen Urine Bacteria 3+ H Urine Casts 0-2 Final Diagnosis (1) Right upper quadrant pain: Code(s): R10.11 - Right upper quadrant pain Status: Acute
== END 2023-04-20 16:33 | disposition home or self-care (01) ==
PROVIDERS: Admitting Provider Obstetrics & Gynecology; PCP Physician Assistant; Visit Provider Obstetrics & Gynecology
DX: O26.892 Other specified pregnancy related conditions, second trimester (principal); R10.11 Right upper quadrant pain; Z3A.27 27 weeks gestation of pregnancy
CPT/HCPCS: 36415; 80053; 81001; 85025; 87077; 87086; 87186; G0378; G0379

== ENCOUNTER 2023-05-02 03:35 | Observation (INO) | payer OTHER, SELFPAY ==
[2023-05-02] VITALS (61 sets, daily range): BP systolic 104–140; BP diastolic 51–72; PULSE 82–228; TEMP 36.8–37.6; O2SAT 93–100; BMI 24.2
--- NOTE | ~2023-05-02 | US_ITS ---
US renal BI DATE: 05/02/2023 12:09 INDICATION: Renal stones TECHNIQUE: Real-time imaging of kidneys and urinary bladder area COMPARISON: 02/08/2023 MR abdomen FINDINGS: The right kidney measures 13.3 cm length, left kidney 12.9 cm length. There is very prominent right hydronephrosis and pelviectasis. The right renal pelvis measures up to approximately 3.5 cm maximal anteroposterior dimension. There is minimal hydronephrosis on the left. No suspicious renal space-occupying mass lesion is evident. The urinary bladder is not well demonstrated.. IMPRESSION: Very prominent right and minimal left hydronephrosis Reviewed, dictated and finalized at [facility]. Reviewed, dictated and finalized at location [facility]. ATE BANKER
[2023-05-02 04:14] LABS: Appearance Urine Turbid (Clear); Bacteria Urine 3+ /hpf; Bilirubin Urine Negative (Negative); Blood Urine 2+ (Negative); Color Urine Yellow (Yellow); Glucose Urine UA Negative (Negative); Ketones Urine Negative (Negative); Leukocyte Esterase Ur 3+ LEU/UL (Negative); Need Manual Microscopic Reviewed; Nitrate Urine Negative (Negative); Protein Urine 2+ mg/dL (Negative); Specific Grav Ur 1.012 (1.001-1.035); Squamous Epithelial Cell Urine Moderate /hpf (Few); Urobilinogen Urine 0.2 mg/dL (<2.0); WBC Clumps Urine Present /HPF; WBC Urine >100 /hpf
[2023-05-02] MEDS: ONDANSETRON HCL ODT 4 MG TABLET PO (04:18)
[2023-05-02 04:19] LABS: Add Urine Microscopic? YES
--- NOTE | 2023-05-02 04:20 | ADMGEN ---
This patient, Kisha Seals, was admitted to Labor/Delivery/Recovery 105-00. Patient/family oriented to hospital policies and general routines including ID bracelet, bed and alarms, visiting hours, pain management, procedures, bathroom and other care routines, personal items, smoking policy, room service/diet, and visiting hours. Information on how to activate the Rapid Response Team has been discussed. Patient/Family are encouraged to report perceived risks to care and to ask questions if they do not understand what they are told or what they should do.
[2023-05-02] MEDS: HYDROcodone/acetaminophen (*CRX) 5-325 MG TABLET 1 TAB PO ×3 (04:37→15:05)
[2023-05-02] MEDS: LACTATED RINGERS 1,000 ML 125 ML IV CONT (04:51)
[2023-05-02] MEDS: cefTRIAXone 2 GM/NS 100 ML 2 GM/100 ML BAG IVPB (04:51)
[2023-05-02 05:11] LABS: Alanine Aminotransferase 18 U/L (6-35); Albumin Level 3.3 g/dL (3.5-5.1); Alkaline Phosphatase 252 U/L (38-126); Anion Gap 8 mmol/L (8-16); Aspartate Amino Transferase 23 U/L (14-36); Bilirubin,Total 0.4 mg/dL (0.2-1.3); Blood Urea Nitrogen 6 mg/dL (7-17); Calcium 9.6 mg/dL (8.4-10.2); Carbon Dioxide 25 mmol/L (22-30); Chloride 101 mmol/L (98-107); Estimated CRCL calculation 94 ml/min; Estimated Glomerular Filt Rate > 60; Glucose 102 mg/dL (65-110); Potassium 3.4 mmol/L (3.4-5.0); Sodium 134 mmol/L (137-145)
[2023-05-02 05:34] LABS: Mean Corpuscular HGB Conc 32.4 g/dl (32-36); Mean Corpuscular Hemoglobin 29.3 pg (26-34); Mean Corpuscular Volume 90.7 fl (80-100); Mean Platelet Volume 8.3 fl (7.4-10.4); Platelet Count Result 586 k/mm3 (150-375); Red Blood Count 3.75 M/mm3 (4.2-5.4); Red Cell Distribution Width 13.2 % (11.5-14.5); White Blood Count 20.2 K/mm3 (4.5-10.0)
[2023-05-02 05:45] LABS: Band Neutrophils Percent 4 % (0-6); Lymphocytes Absolute Manual 1.21 K/mm3 (1.1-4.5); Monocytes Percent Manual 2 % (3-9); Neutrophils Absolute Manual 18.58 K/mm3 (1.7-7.2); Neutrophils Percent Manual 88 % (46-73); Platelet Estimate Increased (Adequate); Schistocytes None Seen (NORMAL); Total Cells Counted 100
--- NOTE | 2023-05-02 05:47 | PC.NURSE ---
see OBIX note.
--- NOTE | 2023-05-02 05:48 | PC.NURSE ---
Patient states she is feeling much better. Nausea and pain have both subsided at this time. Patient is resting comfortable in bed at this time.
--- NOTE | 2023-05-02 05:49 | PC.NURSE ---
At 0335 patient presents with complaints of worsening abdominal and back pain over the course of 2 weeks. Complaints of nausea, vomiting, and muscle aches.
--- NOTE | 2023-05-02 12:35 | PC.NURSE ---
1230--Dr. Ambrosio at to see pt., POC discussed with pt., pt. verbalizes understanding. She states that her ride will not be available until around 1600 this afternoon. Orders to DC pt. home when her ride gets here, and no IVF's or EFM necessary at this time.
--- NOTE | 2023-05-02 12:45 | PM.IMHP ---
H&P: HPI History of Present Illness Date/Time: 05/02/23 12:45 Chief Complaint: nausea, vomiting, flank pain Narrative: Patient presents for nausea, vomiting, and abdominal pain. She reports URI two weeks ago, with current symptoms developing over the past few days. She reports low grade temps of 100 with tylenol at home, R<L abdominal pain. Denies hematuria. Intermittent contractions, no LOF or VB. Baby moving well. Review of Systems Review of Systems: All systems reviewed & are unremarkable except as noted in HPI and below PMFSH Past Medical History Medical History Diarrhea Nausea and vomiting Patient denies significant medical history Surgical History Surgical History History of cholecystectomy Social History Social History Smoking status: Never smoker Alcohol intake: never Alcohol use details: social Substance use: never Lack of Transportation: No Lack of Food: Never True Current Housing: I Have Housing Concerned About Future Housing: No Difficulty Paying Gas/Electric Bills: No Difficulty Paying for Meds: No Currently Unemployed: No Education: Associate Degree Difficulty w/ Childcare or Family Care: No Spiritual care concerns: No Meds Home Medications and Allergies Home Medications Medication Instructions Recorded Confirmed Type vits no.126-ferrous fum 1 tablet PO DAILY 03/24/23 05/02/23 History 28 mg iron-folic acid 800 mcg tablet (Classic ) acetaminophen 500 mg tablet 1,000 mg PO Q6H PRN Pain 04/20/23 05/02/23 History (Tylenol Extra Strength) famotidine 20 mg tablet 20 mg PO BID 04/20/23 05/02/23 History folic acid 1 mg tablet 1 mg PO DAILY 04/20/23 05/02/23 History ferrous sulfate 325 mg (65 mg 325 mg PO DAILY 05/02/23 05/02/23 History iron) tablet (FeroSul) Allergies Allergy/AdvReac Type Severity Reaction Status Date / Time No Known Allergies Allergy Verified 05/02/23 04:09 Vital Signs Vital Signs - 24 hr 05/02/23 03:45 05/02/23 03:56 05/02/23 03:57 Temperature Pulse Rate 115 H Blood Pressure 123/72 Pulse Oximetry 98 98 Oxygen Delivery 05/02/23 04:00 05/02/23 04:02 05/02/23 04:07 Temperature Pulse Rate 121 H Blood Pressure 120/67 Pulse Oximetry 97 96 Oxygen Delivery 05/02/23 03:44 05/02/23 04:12 05/02/23 04:15 Temperature 99.6 F Pulse Rate 116 H Blood Pressure 114/57 L Pulse Oximetry 97 Oxygen Delivery 05/02/23 04:17 05/02/23 04:21 05/02/23 04:22 Temperature Pulse Rate Blood Pressure Pulse Oximetry 100 100 100 Oxygen Delivery 05/02/23 04:23 05/02/23 04:24 05/02/23 04:24 Temperature Pulse Rate Blood Pressure Pulse Oximetry 100 100 100 Oxygen Delivery 05/02/23 04:24 05/02/23 04:24 05/02/23 04:24 Temperature Pulse Rate Blood Pressure Pulse Oximetry 100 100 100 Oxygen Delivery 05/02/23 04:25 05/02/23 04:25 05/02/23 04:25 Temperature Pulse Rate Blood Pressure Pulse Oximetry 100 96 98 Oxygen Delivery 05/02/23 04:26 05/02/23 04:28 05/02/23 04:28 Temperature Pulse Rate Blood Pressure Pulse Oximetry 100 100 98 Oxygen Delivery 05/02/23 04:29 05/02/23 04:30 05/02/23 04:31 Temperature Pulse Rate 110 H Blood Pressure 134/69 Pulse Oximetry 93 100 100 Oxygen Delivery 05/02/23 04:31 05/02/23 04:32 05/02/23 04:34 Temperature Pulse Rate Blood Pressure Pulse Oximetry 100 100 100 Oxygen Delivery 05/02/23 04:34 05/02/23 04:34 05/02/23 04:37 Temperature Pulse Rate Blood Pressure Pulse Oximetry 100 100 100 Oxygen Delivery 05/02/23 04:38 05/02/23 04:39 05/02/23 04:39 Temperature Pulse Rate Blood Pressure Pulse Oximetry 100 100 100 Oxygen Delivery 05/02/23
--- NOTE | 2023-05-02 14:42 | PC.NURSE ---
IV DC'd, tip intact and site WNL.
--- NOTE | 2023-05-05 00:28 | PM.OBTRLD ---
OB - Triage/Final Diagnosis Visit Information Comments/Additional reasons for admission: I have assessed the risk for this patient, Kisha Seals, and determined that she would benefit from observation care. Evaluation Laboratory results: Laboratory Tests 05/02/23 05/02/23 03:55 04:37 WBC 20.2 H RBC 3.75 L Hgb 11.0 L Hct 34.0 L MCV 90.7 MCH 29.3 MCHC 32.4 RDW 13.2 Plt Count 586 H D MPV 8.3 Immature Gran % (Auto) Not Reportable Neut % (Auto) Not Reportable Lymph % (Auto) Not Reportable [place] % (Auto) Not Reportable Eos % (Auto) Not Reportable Baso % (Auto) Not Reportable Lymph # (Auto) Not Reportable [place] # (Auto) Not Reportable Eos # (Auto) Not Reportable Baso # (Auto) Not Reportable Abs Immat Gran (auto) Not Reportable Absolute Neuts (auto) Not Reportable Absolute Nucleated RBC Not Reportable Total Counted 100 Neutrophils % (Manual) 88 H Band Neutrophils % 4 Lymphocytes % (Manual) 6.0 L Monocytes % (Manual) 2 L Nucleated RBC % Not Reportable Abs Neuts (Manual) 18.58 H Abs Lymphs (Manual) 1.21 Abs Monocytes (Manual) 0.40 Platelet Estimate Increased Schistocytes None seen Sodium 134 L Potassium 3.4 Chloride 101 Carbon Dioxide 25 Anion Gap 8 BUN 6 L Creatinine 0.60 L Estim Creat Clear Calc 94 Estimated GFR > 60 Glucose 102 Calcium 9.6 Total Bilirubin 0.4 AST 23 ALT 18 Alkaline Phosphatase 252 H Total Protein 7.0 Albumin 3.3 L Urine Color Yellow Urine Appearance Turbid H Urine pH 7.0 Ur Specific [place] 1.012 Urine Protein 2+ H Urine Glucose (UA) Negative Urine Ketones Negative Ur Blood (Man) 2+ H Urine Nitrate Negative Urine Bilirubin Negative Urine Urobilinogen 0.2 Add Ur Microanalysis Reviewed Leukocyte Esterase Rfl 3+ H Urine RBC 3-5 H Urine WBC >100 H Urine WBC Clumps Present H Ur Squamous Epith Cells Moderate Urine Bacteria 3+ H Urine Casts 6-10 Final Diagnosis (1) UTI (urinary tract infection): Qualifiers: Hematuria presence: without hematuria Urinary tract infection type: acute cystitis Qualified Code(s): N30.00 - Acute cystitis without hematuria Code(s): N39.0 - Urinary tract infection, site not specified Status: Acute
== END 2023-05-02 15:44 | disposition home or self-care (01) ==
LOC: ANHOBPP 13:54 → ANHLDR 05-03 10:33 → ANHOBPP 05-03 10:33
PROVIDERS: Advanced Practice Midwife; Admitting Provider Obstetrics & Gynecology; PCP Physician Assistant; Visit Provider Obstetrics & Gynecology
DX: O23.12 Infections of bladder in pregnancy, second trimester (principal); O99.891 Other specified diseases and conditions complicating pregnancy; N13.30 Unspecified hydronephrosis; Z3A.29 29 weeks gestation of pregnancy
CPT/HCPCS: 36415; 76775; 80053; 81001; 85025; 87077; 87086; 87186; 96374; A9270; G0378; G0379; J0696; J7120

== ENCOUNTER 2023-06-30 14:35 | Inpatient (IN) | payer OTHER, SELFPAY ==
[2023-06-30] VITALS (47 sets, daily range): BP systolic 118–139; BP diastolic 66–72; PULSE 33–108; TEMP 36.2–36.3; O2SAT 84–100; BMI 25.7
--- NOTE | ~2023-06-30 | US_ITS ---
EXAMINATION: US renal BI DATE: 06/30/2023 19:03 INDICATION: R. side pain TECHNIQUE: Multiple grayscale and Doppler ultrasound images of the kidneys were obtained. COMPARISON: 05/02/2023 FINDINGS: The right kidney measures 12.4 x 6.1 x 9.1 cm. The left kidney measures 11.2 x 4.7 x 5.0 cm. The kidn eys demonstrate normal parenchymal echogenicity. There is moderate right hydronephrosis. The bladder is normal. IMPRESSION: Stable moderate right hydronephrosis. Reviewed, dictated and finalized at location [facility].
--- NOTE | 2023-06-30 15:30 | OBADM ---
This patient, Kisha Robles, admitted to the OB room Labor/Delivery/Recovery 105 for observation. Patient/family oriented to hospital policies and general routines including ID bracelet, bed and alarms, visiting hours, pain management, procedures, bathroom and other care routines, personal items, smoking policy, room service/diet, and visiting hours. Patient/Family are encouraged to report perceived risks to care and to ask questions if they do not understand what they are told or what they should do.
[2023-06-30 15:41] LABS: Appearance Urine Cloudy (Clear); Bacteria Urine 4+ /hpf; Bilirubin Urine Negative (Negative); Blood Urine 3+ (Negative); Color Urine Yellow (Yellow); Glucose Urine UA Negative (Negative); Ketones Urine Negative (Negative); Leukocyte Esterase Ur 2+ LEU/UL (Negative); Nitrate Urine Negative (Negative); Non Pathogenic Casts 0-2; Protein Urine 3+ mg/dL (Negative); Specific Grav Ur 1.007 (1.001-1.035); Squamous Epithelial Cell Urine None Seen /hpf (Few); Urobilinogen Urine 0.2 mg/dL (<2.0); WBC Urine >100 /hpf (0-3)
[2023-06-30] MEDS: ACETAMINOPHEN 500 MG TABLET 1000 MG PO (15:43)
[2023-06-30 15:44] LABS: Add Urine Microscopic? YES
[2023-06-30 16:08] LABS: Hematocrit 36.4 % (37.0-47.0); Hemoglobin 11.9 g/dL (12.0-15.0); Mean Corpuscular HGB Conc 32.7 g/dl (32-36); Mean Corpuscular Hemoglobin 29.5 pg (26-34); Mean Corpuscular Volume 90.3 fl (80-100); Mean Platelet Volume 8.6 fl (7.4-10.4); Platelet Count Result 334 k/mm3 (150-375); Red Blood Count 4.03 M/mm3 (4.2-5.4); Red Cell Distribution Width 15.3 % (11.5-14.5); White Blood Count 20.2 K/mm3 (4.5-10.0)
[2023-06-30] MEDS: SODIUM CHLORIDE 0.9% IV 250 ML 100 ML IV CONT (16:20)
[2023-06-30] MEDS: cefTRIAXone 2 GM/NS 100 ML 2 GM/100 ML BAG IVPB (16:21)
[2023-06-30 16:24] LABS: Band Neutrophils Percent 1 % (0-6); Eosinophils Percent Manual 1 % (0-4); Lymphocytes Absolute Manual 2.62 K/mm3 (1.1-4.5); Monocytes Percent Manual 4 % (3-9); Neutrophils Absolute Manual 16.56 K/mm3 (1.7-7.2); Neutrophils Percent Manual 81 % (46-73); Platelet Estimate Adequate (Adequate); Schistocytes None Seen; Total Cells Counted 100
[2023-06-30 16:25] LABS: Anisocytosis 1+
[2023-06-30] MEDS: LACTATED RINGERS 1,000 ML 150 ML IV CONT ×2 (16:55→23:59)
[2023-06-30] MEDS: HYDROcodone/acetaminophen (*CRX) 5-325 MG TABLET 1 TAB PO (16:57)
[2023-06-30] MEDS: ONDANSETRON INJ 4 MG/2 ML VIAL IV PUSH ×2 (18:11→21:44)
[2023-06-30] MEDS: HYDROmorphone HCL INJ (*CRX) 1 MG/ML SYR IV PUSH ×2 (18:11→21:44)
[2023-07-01] VITALS (29 sets, daily range): BP systolic 110–111; BP diastolic 65–68; PULSE 32–94; RESP 16–18; TEMP 36.6; O2SAT 94–98
[2023-07-01] MEDS: ONDANSETRON INJ 4 MG/2 ML VIAL IV PUSH ×2 (01:55→07:11)
[2023-07-01] MEDS: HYDROmorphone HCL INJ (*CRX) 1 MG/ML SYR IV PUSH ×2 (01:55→07:11)
--- NOTE | 2023-07-01 06:00 | PC.NURSE ---
Report given to Buffy Coleman RN.
[2023-07-01] MEDS: LACTATED RINGERS 1,000 ML 150 ML IV CONT ×2 (06:31→13:13)
[2023-07-01] MEDS: ACETAMINOPHEN 500 MG TABLET 1000 MG PO ×2 (06:34)
--- NOTE | 2023-07-01 07:32 | PC.NURSE ---
Dr. Ambrosio at bedside, plan is to switch IV medication to PO. NST twice a shift.
--- NOTE | 2023-07-01 07:35 | PM.IMHP ---
H&P: HPI History of Present Illness Date/Time: 07/01/23 07:35 Chief Complaint: right flank pain, nausea Narrative: Patient is a 38 year old at 37w4d who presents with 3 day history of right flank pain and nausea, similar to her previous episode of pyelonephritis in April. She reports flank pain beginning 3-4 days ago, worsening to the point of nausea. She denies fevers or chills. She was previously admitted in April for pyelonephritis where she received IV antibiotics x24 hours, followed by a 10 day course of oral abx. Urine culture showed Klebsiella pneumonia. She has been on keflex suppression daily since then. She denies contractions, LOF, VB. Good movement. This morning, she is feeling somewhat better. Nausea controlled with zofran. Would like to try to eat breakfast. Afebrile overnight. Review of Systems Review of Systems: All systems reviewed & are unremarkable except as noted in HPI and below PMFSH Past Medical History Medical History Diarrhea Nausea and vomiting Patient denies significant medical history Surgical History Surgical History History of cholecystectomy Family History Family History Other No pertinent family history Social History Social History Smoking status: Never smoker Alcohol intake: never Alcohol use details: social Substance use: never Lack of Transportation: No Lack of Food: Never True Current Housing: I Have Housing Concerned About Future Housing: No Difficulty Paying Gas/Electric Bills: No Difficulty Paying for Meds: No Currently Unemployed: No Education: Associate Degree Difficulty w/ Childcare or Family Care: No Spiritual care concerns: No Meds Home Medications and Allergies Home Medications Medication Instructions Recorded Confirmed Type vits no.126-ferrous fum 1 tablet PO DAILY 03/24/23 05/02/23 History 28 mg iron-folic acid 800 mcg tablet (Classic ) acetaminophen 500 mg tablet 1,000 mg PO Q6H PRN Pain 04/20/23 05/02/23 History (Tylenol Extra Strength) famotidine 20 mg tablet 20 mg PO BID 04/20/23 05/02/23 History folic acid 1 mg tablet 1 mg PO DAILY 04/20/23 05/02/23 History amoxicillin 875 mg-potassium 1 tablet PO Q12H 14 days #28 tabs 05/02/23 Rx clavulanate 125 mg tablet ferrous sulfate 325 mg (65 mg 325 mg PO DAILY 05/02/23 05/02/23 History iron) tablet (FeroSul) hydrocodone 5 mg-acetaminophen 325 1 tablet PO Q4-6H PRN Pain Rated 05/02/23 Rx mg tablet 4-6 #10 tabs Allergies Allergy/AdvReac Type Severity Reaction Status Date / Time No Known Allergies Allergy Verified 06/18/23 13:47 Vital Signs Vital Signs - 24 hr 06/30/23 15:01 06/30/23 16:21 06/30/23 18:11 Temperature 97.3 F L Pulse Rate 71 Respiratory Rate Blood Pressure 139/66 Pulse Oximetry 98 Oxygen Delivery 06/30/23 18:16 06/30/23 18:21 06/30/23 18:26 Temperature Pulse Rate Respiratory Rate Blood Pressure Pulse Oximetry 97 95 95 Oxygen Delivery 06/30/23 18:31 06/30/23 18:36 06/30/23 18:41 Temperature Pulse Rate Respiratory Rate Blood Pressure Pulse Oximetry 93 95 95 Oxygen Delivery 06/30/23 18:44 06/30/23 19:07 06/30/23 19:12 Temperature Pulse Rate Respiratory Rate Blood Pressure Pulse Oximetry 97 97 95 Oxygen Delivery 06/30/23 19:17 06/30/23 19:17 06/30/23 19:22 Temperature Pulse Rate Respiratory Rate Blood Pressure Pulse Oximetry 96 96 100 Oxygen Delivery 06/30/23 19:23 06/30/23 19:26 06/30/23 19:31 Temperature Pulse Rate Respiratory Rate Blood Pressure Pulse Oximetry 100 99 98 Oxygen Delivery 06/30/23 19:36 06/30/23 19:41 06/30/23 19:46 Temperature Puls
--- NOTE | 2023-07-01 08:11 | PC.NURSE ---
0800- Patient ate breakfast, feels better. Would like to go back to sleep.
[2023-07-01] MEDS: HYDROcodone/acetaminophen (*CRX) 5-325 MG TABLET 1 TAB PO ×2 (11:51→15:52)
[2023-07-01] MEDS: ONDANSETRON HCL ODT 4 MG TABLET PO (11:52)
[2023-07-01] MEDS: cefTRIAXone 2 GM/NS 100 ML 2 GM/100 ML BAG IVPB (15:54)
--- NOTE | 2023-07-01 16:37 | PC.NURSE ---
Dr. Ambrosio updated on patient status. Okay to discharge, will put in medication orders to go home with.
--- NOTE | 2023-07-10 13:22 | PM.DS ---
DS: Admitting Diagnosis Discharge Date 07/01/23 Admitting Diagnosis nausea, vomiting, R flank pain DS: Discharge Diagnosis Discharge Diagnosis (1) Hydronephrosis determined by ultrasound: Code(s): N13.30 - Unspecified hydronephrosis Status: Acute (2) Pyelonephritis: Code(s): N12 - Tubulo-interstitial nephritis, not specified as acute or chronic Status: Acute DS: Summary Hospital Course Hospital Course: Patient is a 38 year old female who presented at 37 weeks with nausea, vomiting and R flank pain, similar to prior episode of pyelonephritis. She was previously admitted for this problem and was discharged on daily ppx which she has been compliant with. She was started on Rocephin IV and IV fluids. Renal US demonstrated stable R hydronephorosis, no evidence of kidney stone. On HD#1, her pain was well controlled on PO meds, and she was afebrile. She was discharged home with close follow up. status reassuring throughout stay. Time Spent with Patient Time attestation: Total time spent providing and/or coordinating discharge services: Exam Const: General: comfortable and no acute distress HENMT: Mouth: Yes moist mucous membranes Eyes: General: appearance normal, both eyes and all related structures Resp: Effort & Inspection: normal respiratory effort Cardio: Rate: regular rate GI: Other: gravid Skin: General skin exam: normal color Extrem: General: normal to inspection Psych: Mental Status: mental status grossly normal Discharge Plan Discharge Attending physician on discharge: Jose Ambrosio Consulting providers: Osiel Aguilera Discharging Clinician: Jose Ambrosio Anticipated Discharge Date/Time: 07/01/23 17:00 Patient Disposition: Home, Self-Care Activity: as tolerated Diet: regular Discharge Instructions: OB ANTEPARTUM DISCHARGE INSTRUCTIONS This information is given to help you properly care for yourself at home after your discharge from the hospital. Follow these instructions until your doctor tells you otherwise. DIET: Eat Three Well Balanced Meals per Day Small Frequent Feedings Additional Diet Instructions: ACTIVITY: As Tolerated Additional Activity Instructions: RETURN TO LABOR AND DELIVERY IF YOU HAVE: Any Change In Baby's Normal Movement Pattern Any Leakage of Fluid Contractions 5-7 Minutes Apart with Increasing Intensity Vaginal Bleeding Additional Reasons to Return to Labor and Delivery: Contractions may feel like abdominal pain, tightening, cramping, pressure, back ache, or thigh ache. OTHER INSTRUCTIONS: FOLLOW-UP CARE: Keep Next Scheduled Appointment To see Dr. Ambrosio in/on 07/05/2023 Valuables released to patient or family? N/A Medications from home returned to patient? N/A IF YOU HAVE ANY QUESTIONS REGARDING THESE INSTRUCTIONS, PLEASE CALL [phone]. IF PROBLEMS ARISE, CALL YOUR PROVIDER. IF EMERGENCY CARE IS NEEDED, [facility] EMERGENCY ROOM IS AVAILABLE 24 HOURS A DAY. Patient Instructions: Antibiotic Form Stand Alone Forms: General Discharge Information Follow-up/Referrals: Jose Ambrosio MD [Physician] - Discharge Medications: Continued Classic 28 mg iron- 800 mcg Tablet 1 tablet PO DAILY acetaminophen [Tylenol Extra Strength] 500 mg Tablet 1,000 mg PO Q6H PRN (Reason: Pain) famotidine 20 mg tablet 20 mg PO BID folic acid 1 mg tablet 1 mg PO DAILY ferrous sulfate [FeroSul] 325 mg (65 mg iron) tablet 325 mg PO DAILY No Action hydrocodone-acetaminophen 5-325 mg Tablet 1 tablet PO Q4-6H PRN (Reason: Pain Rated 4-6) Qty: 10 0RF Date of admission: 07/01/23 15:41 Primary Care Provider: Erick,Aguilar Rizo Admitting Provider: Jose Ambrosio Attending physician on admission: Jose Ambrosio Condition: Stable
== END 2023-07-01 16:58 | disposition home or self-care (01) | DRG 566 ==
LOC: ANHLDR 15:06 → ANHOBPP 16:50
PROVIDERS: Advanced Practice Midwife; Admitting Provider Obstetrics & Gynecology; PCP Physician Assistant; Visit Provider Obstetrics & Gynecology
DX: O23.03 Infections of kidney in pregnancy, third trimester (principal); Z3A.38 38 weeks gestation of pregnancy
CPT/HCPCS: 36415; 59025; 76775; 85025; 87077; 87086; 87088; 87186; A9270; J0696; J1170; J2405; J7050; J7120

== ENCOUNTER 2023-07-12 00:01 | Inpatient (IN) | payer OTHER, SELFPAY ==
[2023-07-12] VITALS (167 sets, daily range): BP systolic 93–150; BP diastolic 36–102; PULSE 62–210; RESP 16–18; TEMP 36.3–37.3; O2SAT 81–100; BMI 25.7
[2023-07-12] MEDS: LACTATED RINGERS 1,000 ML 125 ML IV CONT (00:41)
[2023-07-12 00:43] LABS: Basophils Absolute Auto 0.1 K/mm3 (0.0-0.1); Basophils Percent Auto 0.3 % (0.2-1.2); Eosinophils Absolute Auto 0.3 K/mm3 (0-0.3); Eosinophils Percent Auto 1.3 % (0-4.4); Hematocrit 36.7 % (37.0-47.0); Hemoglobin 12.2 g/dL (12.0-15.0); Immature Granulocyte Absolute 0.23 K/mm3 (0.00-0.031); Immature Granulocyte Percent A 1.1 % (0-0.5); Lymphocytes Absolute Auto 2.52 K/mm3 (0.9-3.2); Lymphocytes Percent Auto 12.5 % (18.3-44.2); Mean Corpuscular HGB Conc 33.2 g/dl (32-36); Mean Corpuscular Hemoglobin 29.6 pg (26-34); Mean Corpuscular Volume 89.1 fl (80-100); Mean Platelet Volume 8.5 fl (7.4-10.4); Monocytes Absolute Auto 1.1 K/mm3 (0.1-0.6); Monocytes Percent Auto 5.6 % (2.6-8.5); Neutrophils Percent Auto 79.2 % (45.5-73.1); Platelet Count Result 358 k/mm3 (150-375); Red Blood Count 4.12 M/mm3 (4.2-5.4); Red Cell Distribution Width 15.4 % (11.5-14.5); White Blood Count 20.2 K/mm3 (4.5-10.0)
--- NOTE | 2023-07-12 01:07 | ADMGEN ---
This patient, Kisha Robles, was admitted to Labor/Delivery/Recovery 107-00. Patient/family oriented to hospital policies and general routines including ID bracelet, bed and alarms, visiting hours, pain management, procedures, bathroom and other care routines, personal items, smoking policy, room service/diet, and visiting hours. Information on how to activate the Rapid Response Team has been discussed. Patient/Family are encouraged to report perceived risks to care and to ask questions if they do not understand what they are told or what they should do.
[2023-07-12 01:14] LABS: Anisocytosis 1+; Platelet Estimate Adequate (Adequate); Schistocytes None Seen
--- NOTE | 2023-07-12 01:16 | WPDANESEPPF ---
Anes - Initial Pre Proc Eval Procedure: Labor epidural Date/Time: 07/12/23 01:16 Surgeon: Jose Ambrosio MD Pre Op Diagnosis: Labor pain Pre Op Diagnosis: IOL Patient Data Age: 38 Gender: F Height: 1.63 m Weight: 68 kg Last Vital Signs Pulse Ox 100 07/12/23 01:15 Allergies Allergy/AdvReac Type Severity Reaction Status Date / Time No Known Allergies Allergy Verified 06/18/23 13:47 Home Medications Medication Instructions Recorded Confirmed Type vits no.126-ferrous fum 1 tablet PO DAILY 03/24/23 07/01/23 History 28 mg iron-folic acid 800 mcg tablet (Classic ) acetaminophen 500 mg tablet 1,000 mg PO Q6H PRN Pain 04/20/23 07/01/23 History (Tylenol Extra Strength) famotidine 20 mg tablet 20 mg PO BID 04/20/23 07/01/23 History folic acid 1 mg tablet 1 mg PO DAILY 04/20/23 07/01/23 History ferrous sulfate 325 mg (65 mg 325 mg PO DAILY 05/02/23 07/01/23 History iron) tablet (FeroSul) hydrocodone 5 mg-acetaminophen 325 1 tablet PO Q4-6H PRN Pain Rated 05/02/23 07/01/23 Rx mg tablet 4-6 #10 tabs Laboratory Tests 07/12/23 00:36 WBC 20.2 H K/mm3 (4.5-10.0) RBC 4.12 L M/mm3 (4.2-5.4) Hgb 12.2 g/dL (12.0-15.0) Hct 36.7 L % (37.0-47.0) MCV 89.1 fl (80-100) MCH 29.6 pg (26-34) MCHC 33.2 g/dl (32-36) RDW 15.4 H % (11.5-14.5) Plt Count 358 k/mm3 (150-375) MPV 8.5 fl (7.4-10.4) Immature Gran % (Auto) 1.1 H % (0-0.5) Neut % (Auto) 79.2 H % (45.5-73.1) Lymph % (Auto) 12.5 L % (18.3-44.2) Sherman % (Auto) 5.6 % (2.6-8.5) Eos % (Auto) 1.3 % (0-4.4) Baso % (Auto) 0.3 % (0.2-1.2) Lymph # (Auto) 2.52 K/mm3 (0.9-3.2) Sherman # (Auto) 1.1 H K/mm3 (0.1-0.6) Eos # (Auto) 0.3 K/mm3 (0-0.3) Baso # (Auto) 0.1 K/mm3 (0.0-0.1) Abs Immat Gran (auto) 0.23 H K/mm3 (0.00-0.031) Absolute Neuts (auto) 16.0 H K/mm3 (1.3-6.7) Absolute Nucleated RBC 0.000 K/mm3 (0.0-0.012) Nucleated RBC % 0.0 % (0.0-0.2) Platelet Estimate Adequate (Adequate) Anisocytosis 1+ Schistocytes None seen RPR Pending Patient hx anesthesia problems: none Family hx anesthesia problems: none Results Review: All pre-operative results and documents have been reviewed as part of the pre-operative evaluation. [facility] Past Medical History Medical History Diarrhea Nausea and vomiting Patient denies significant medical history Surgical History Surgical History History of cholecystectomy Family History Family History Other No pertinent family history Social History Social History Smoking status: Never smoker Alcohol intake: never Alcohol use details: social Substance use: never Lack of Transportation: No Lack of Food: Never True Current Housing: I Have Housing Concerned About Future Housing: No Difficulty Paying Gas/Electric Bills: No Difficulty Paying for Meds: No Currently Unemployed: No Education: Associate Degree Difficulty w/ Childcare or Family Care: No Spiritual care concerns: No Anes - Eval Final PreProcedure Day of Procedure 07/12/23 01:16 Patient weight: normal Heart: regular rate and rhythm Lungs: clear to auscultation Neurological: alert and oriented ASA classification: II Anesthesia type and monitoring: regional epidural and standard monitoring Results Review: All pre-operative results and documents have been reviewed as part of the pre-operative evaluation. Informed Consent: The patient's anesthetic plan and its attendant risks and benefits were discussed with the patient/family/POA. Questions were solicited and answers provided to the satisfaction of the patient/
--- NOTE | 2023-07-12 02:09 | WPDANESEPN ---
Anes - Epidural Procedure Note Date/Time: 07/12/23 02:09 Consent: I have discussed with the patient/family/POA, the placement of an epidural catheter and the use of epidural narcotic/local anesthetic for labor analgesia and/or postoperative pain management, including associated potential risks, benefits, complications and side effects. I have discussed alternative methods of labor analgesia and/or postoperative pain management. The patient/family/POA, understand(s) and wish(es) to proceed with epidural narcotic/local anesthetic for labor analgesia and/or postoperative pain management. Time-Out: A pre-procedural Time-Out was completed immediately before starting the procedure and confirmed: Patient Identification, Site, Procedure, Patient Position and the Availability of Requisite Equipment. Clinical Indications: Labor pain Epidural Insertion Note Patient position: sitting Skin prep: chlorhexidine and sterile drape Needle: 18g Tuohy-Schliff Catheter: 20g Unstyleted Technique: Loss of resistance. Level of insertion: L4/5 Catheter skin jn (cm): 10 Length in epidural space (cm): 5 Skin anesthesia: lidocaine 1% Test dose: 1.5% Lidocaine with 1:232325 Epi, negative for subarachnoid Inj and negative for intravascular Inj Time of test dose: 01:31 Observations: tolerated well Complications: none
[2023-07-12] MEDS: ONDANSETRON INJ 4 MG/2 ML VIAL IV PUSH ×3 (02:12→15:48)
[2023-07-12] MEDS: OXYTOCIN 30 UNITS/NS 500 ML 30 UNITS/500 ML BAG IV CONT (02:34)
[2023-07-12] MEDS: FAMOTIDINE 20 MG/2 ML VIAL IV PUSH (06:11)
[2023-07-12] MEDS: OXYTOCIN 30 UNITS/NS 500 ML 30 UNITS/500 ML BAG 125 UNITS IV CONT (09:24)
[2023-07-12] MEDS: IBUPROFEN 600 MG TABLET PO ×3 (10:14→22:11)
[2023-07-12] MEDS: BENZOCAINE 20% AER SPR (*SP) 56 GM CAN 1 SPRAY TOPICAL (10:15)
[2023-07-12] MEDS: WITCH HAZEL 40 PADS 1 PAD TOPICAL (10:15)
--- NOTE | 2023-07-12 10:59 | WPDOBADMIT ---
Obstetrics - Admit Note Admission Note: record reviewed. No pertinent additions to the history and/or any subsequent changes in the physical findings that are not consistent with the expected course of the were found. Additions to the history and/or subsequent changes in the physical findings follow. None. Admitted for EIL at 39 weeks, pitocin per protocol, AROM at 0810 with clear fluid. SVE /-1
--- NOTE | 2023-07-12 11:00 | P.PCNOB_ITS ---
OB - Vaginal Delivery Note Procedure Delivery date: 07/12/23 Events: Elective Induction of Labor Induction method: Per Pitocin Protocol Delivery augmentation: Rupture of Membranes Delivery monitor: External FHT and External Uterine Route of delivery: Episiotomy description: None Laceration Description: Perineal - 1st Degree Delivery repair: vicryl Specimen: No Quantitative Blood Loss (ml): 100 Anesthesia type: None Disposition: Floor Complications: No immediate complications Narrative: mother and baby stable at this time Central Baby Date of : 07/12/23 Weeks of gestation at delivery: 39 gender: Male presentation: vertex position: Left Occiput Anterior Placenta delivery description: Expressed Cord Vessel Description: 3 Vessels
--- NOTE | 2023-07-12 11:10 | OBPPTRN ---
Patient transferred to post room #290 via wheelchair. Support person present. Oriented to unit, room, information board, rooming in, admission packet and security measures. Patient verbalizes understanding.
[2023-07-12 11:19] LABS: Rapid Plasma Reagin Non-Reactive (NonReactive)
[2023-07-12] MEDS: ACETAMINOPHEN 325 MG TABLET 650 MG PO ×2 (11:48→17:36)
[2023-07-13 05:26] LABS: Hematocrit 33.3 % (37.0-47.0); Hemoglobin 10.8 g/dL (12.0-15.0)
--- NOTE | 2023-07-13 07:00 | WPDANLDPN2 ---
Anes-Prog Note L&D Date/Time: 07/13/23 07:00 Comfortable throughout: labor and delivery Neuraxial method: epidural Epidural/Spinal procedure site: clean & non-tender Neuro status: Neuro function grossly intact. Cardiovascular status: normal Respiratory status: normal Airway patency: baseline Mental status: baseline Post-Op hydration status: normal Vital Signs: Last Vital Signs Temp 36.6 C 07/12/23 23:46 Pulse 66 07/12/23 23:46 Resp 16 07/12/23 23:46 BP 113/63 07/12/23 23:46 Pulse Ox 97 07/12/23 23:46 O2 Del Method Room Air 07/12/23 20:54 Pain score (VAS): 1 I/O: Intake & Output 07/12/23 07/12/23 07/13/23 15:59 23:59 07:59 Intake Total 1412.8 Output Total 100 Balance 1312.8 Post-procedural complaints: none Patient feedback: Patient satisfied with anesthetic care.
--- NOTE | 2023-07-13 08:14 | PM.OBPNLAB ---
Pain Control Date/time seen: 07/13/23 08:14 Comments: Pain well controlled with epidural Pelvic Exam Dilation (cm): 7 Effacement (%): 90 station: -2 Amniotic membrane status: Ruptured Contractions Monitor mode: Internal Status status: Category l Assessment and Plan Pitocin rate (mU/min): 22 Assessment: induction ongoing Plan: continuous present management Comments: LOT presentation on BSUS; attempted to rotate head with minimal change; FSE placed without issue; continue position changes to encourage descent into pelvis. FHR overall category 1, prolonged decel x1 after rotation with good recovery
--- NOTE | 2023-07-13 08:18 | PM.OBPNVD ---
OB - PN: Subj Subjective Date/time seen: 07/13/23 08:18 Interval history: PPD#1 Doing well, cramping improved No fevers or chills Emptying bladder without issue OB - PN: Obj Data Labs 07/13/23 05:03 Labs: Laboratory Results - last 24 hr 07/12/23 07/13/23 00:36 05:03 Hgb 10.8 L Hct 33.3 L RPR Non-reactive OB - PN A/P Plan day: 1 Plan: routine care and discharge home Time Spent With Patient Time: Total time spent is greater than 50% in coordination of care (as documented) at patient's floor/unit and/or counseling patient: Review of Systems Review of Systems: All systems reviewed & are unremarkable except as noted in HPI and below Exam Const: General: comfortable and no acute distress Resp: Effort & Inspection: normal respiratory effort
--- NOTE | 2023-07-13 08:23 | PM.OBDSVD ---
DS: Admitting Diagnosis Discharge Date 07/13/23 Admitting Diagnosis EIL DS: Discharge Diagnosis Discharge Diagnosis (1) (spontaneous vaginal delivery): Code(s): O80 - Encounter for full-term uncomplicated delivery Status: Acute OB - DS: Summary OB Procedures : None OB Procedures Intrapartum: Spontaneous Vag Delivery OB Procedures: : None Peripartum Data Laceration Description: Perineal - 1st Degree Episiotomy description: None complications: none Time Spent with Patient Time attestation: Total time spent providing and/or coordinating discharge services: Exam Const: General: comfortable and no acute distress Resp: Effort & Inspection: normal respiratory effort DS: Data Data Completed and Pending Labs on day of discharge: Labs from last 24 hours 07/13/23 07/12/23 05:03 00:36 Hgb 10.8 L Hct 33.3 L RPR Non-reactive Discharge Plan Discharge Attending physician on discharge: Jose Ambrosio Discharging Clinician: Jose Ambrosio Patient Disposition: Home, Self-Care Activity: may shower and pelvic rest Diet: as tolerated Patient Instructions: Antibiotic Form Stand Alone Forms: General Discharge Information Follow-up/Referrals: Jose Ambrosio MD [Physician] - 4 Weeks Discharge Medications: New docusate sodium 100 mg Capsule 100 mg PO BID PRN (Reason: Constipation) Qty: 60 0RF ibuprofen 600 mg Tablet 600 mg PO Q6H PRN (Reason: Cramping) Qty: 30 0RF Continued acetaminophen [Tylenol Extra Strength] 500 mg Tablet 1,000 mg PO Q6H PRN (Reason: Pain) famotidine 20 mg tablet 20 mg PO BID ferrous sulfate [FeroSul] 325 mg (65 mg iron) tablet 325 mg PO DAILY Discontinued Classic 28 mg iron- 800 mcg Tablet 1 tablet PO DAILY folic acid 1 mg tablet 1 mg PO DAILY Date of admission: 07/12/23 00:01 Primary Care Provider: ErickAguilar Admitting Provider: Jose Ambrosio Attending physician on admission: Jose Ambrosio Condition: Stable
[2023-07-13 08:51] VITALS: BP 125/79; PULSE 77; RESP 16; TEMP 37; O2SAT 98
== END 2023-07-13 11:33 | disposition home or self-care (01) | DRG 560 ==
LOC: ANHLDR 00:02 → ANHOB2 11:47
PROVIDERS: Admitting Provider Obstetrics & Gynecology; PCP Physician Assistant; Visit Provider Obstetrics & Gynecology
DX: O70.0 First degree perineal laceration during delivery (principal); Z37.0 Single live birth; Z3A.39 39 weeks gestation of pregnancy
CPT/HCPCS: 36415; 85014; 85018; 85025; 86592; 86850; 86900; 86901; 87077; 87086; 87088; 87186; A9270; J2405; J2590; J2795; J7120

== ENCOUNTER 2024-06-01 17:55 | Emergency (ER) | payer OTHER, SELFPAY ==
[2024-06-01 18:07] VITALS: BP 119/70; PULSE 120; RESP 16; TEMP 38; O2SAT 99
--- NOTE | 2024-06-01 18:40 | ED_ITS ---
HPI - URI/Sore Throat General Chief Complaint: Upper Respiratory Infection Stated Complaint: Fever/Body Aches/Congestion/Sore Throat Time Seen by Provider: 06/01/24 18:30 Source: patient, RN notes reviewed and old records reviewed Mode of arrival: ambulatory Limitations: no limitations History of Present Illness HPI Narrative: 38 year olld female who presents to [facility] care with complaints of fever chills, cough, body aches and sore throat for the past 3 days Patient reports that she has been taking Ibuprofen and Tylenol and cold and flu medication Patient reports that the last dose of Tylenol was oe hour ago. Patient reports that coug is productive and she has some nause also with no vomiting or diarrhea. Patient reports that other family member have been ill also. MD elicited complaint: cough and sore throat Onset (ago): day(s) (3) Severity: moderate Able to tolerate fluids by mouth: Yes Treatments prior to arrival: ibuprofen and cold medicine Related Data Allergies Allergy/AdvReac Type Severity Reaction Status Date / Time No Known Allergies Allergy Verified 07/12/23 01:46 Review of Systems Review of Systems: CONSTITUTIONAL: Reports malaise, chills, sweats, or fever. EYES: Denies visual changes, redness, or discharge. ENT: Reports rhinorrhea, congestion, sinus pain, otalgia and sore throat. CARDIOVASCULAR: Denies chest pain, palpitations, or edema. RESPIRATORY: Reports cough.? Denies dyspnea. GASTROINTESTINAL: Denies abdominal pain,states some nausea, no vomiting, no diarrhea SKIN: Denies rash or itching. MUSCULOSKELETAL: Reports myalgia. NEUROLOGIC:reports headache. All systems reviewed & are unremarkable except as noted in HPI and below PMFSH Past Medical History Medical History (Updated 06/03/24 @ 21:17 by Darlin Haddad NP) UTI (urinary tract infection) IBS (irritable bowel syndrome) Diarrhea Nausea and vomiting Patient denies significant medical history Surgical History Surgical History History of cholecystectomy Family History Family History Other No pertinent family history Social History Social History Smoking packs per day: 0.5 Smoking cigarettes per day: 10.0 Years smoked: 4 Smoking pack-years: 2.00 Smoking status: Former smoker Tobacco type: cigarettes Alcohol intake: never Alcohol use details: social Substance use: never Do You Feel Safe in your Home?: Yes Lack of Transportation: No Lack of Food: Never True Current Housing: I Have Housing Concerned About Future Housing: No Difficulty Paying Gas/Electric Bills: No Difficulty Paying for Meds: No Currently Unemployed: No Education: Associate Degree Difficulty w/ Childcare or Family Care: No Spiritual care concerns: No Comments At time of signature, agree with nursing past medical, surgical, social and family history. There is no relevant family history pertinent to the presenting complaint Exam Narrative: GENERAL: Ill-appearing, well-nourished, and in no acute distress. HEAD: Normocephalic EYES: PERRLA, conjunctivae clear ENT: Nares clear, turbinates edematous and erythematous, clear discharge. Mucous membranes moist. TM pearly abad with dull light reflex bilaterally; no tragal tenderness. Oropharynx erythematous without lesions. Tonsils not enlarged and without exudate, no drooling, no hoarseness, no trismus, uvula midline.post nasal drainage NECK: Supple. No lymphadenopathy CHEST: Clear to auscultation, breath sounds equal. No wheezing, rhonchi, rales, or stridor. No respiratory distress, speaks in full sentences. cough noted, SAO2 99% on room air HEART: Regular rate and rhythm. No murmur heard. SKIN: Warm, dry, no rash. NEURO: Alert and oriented x3. PSYCH: Normal mood and affect Course Course Emergency Course: Patient is aware of diagnosis, understands and agrees to treatment plan.? Anticipatory guidance given.? Patient agrees to follow-up as directed and is aware of reasons to seek care at the emergency department. Portions of this record may have been created with voice recognition software Level of Care: Express Care Visit Vital Signs Vital signs: Vital Signs Temperature 38.0 C H 06/01/24 18:07 Pulse Rate 120 H 06/01/24 18:07 Respiratory Rate 16 06/01/24 18:07 Blood Pressure 119/70 06/01/24 18:07 Pulse Oximetry 99 06/01/24 18:07 Oxygen Delivery Room Air 06/01/24 18:07 Temperature 38.0 C H 06/01/24 18:07 Pulse Rate 120 H 06/01/24 18:07 Respiratory Rate 16 06/01/24 18:07 Blood Pressure 119/70 06/01/24 18:07 Pulse Oximetry 99 06/01/24 18:07 Oxygen Delivery Room Air 06/01/24 18:07 Reviewed MDM - URI/Sore Throat MDM Narrative Medical decision making narrative: Differential diagnosis considered: Chaparro virus, strep pharyngitis, allergic rhinitis, upper respiratory tract infection, sinusitis, rhinosinusitis, nasopharyngitis. viral pharyngitis, otitis media, otitis externa, pneumonia, bronchitis, viral cough syndrome, viral syndrome, and influenza.? Exam findings show no acute concerns or changes; patient is non-toxic appearing and is in no distress.? Patient is appropriate for outpatient treatment and follow-up. Differential Diagnosis Differential diagnosis: Likely upper respiratory infection, sinusitis, viral infection, influenza, pharyngitis and other (COVID , acute cough) Lab Data Attestation: I reviewed the patient's lab results. Lab results narrative: Influenza A positive, Influenza B negative, COVID antigen negative, strep screen negative, culture sent Labs: Lab Results 06/01/24 Range/Units 18:04 POC Influenza A Ag Positive (Negative) POC Influenza B Ag Negative (Negative) POC SARS CoV-2 Ag Negative (Negative) POC Grp A Strep Screen Negative (Negative) reviewed Critical Care Time Critical Care Time Critical Care Time: No Discharge Plan Discharge Clinical Impression: Influenza A Patient Disposition: Home, Self-Care Condition: Stable Instructions: Antibiotic Form, Influenza (ED) Additional Instructions: Increase fluids especially juices and water [id number] cough and cold medicine of your choice for your symptoms Zyrtec Claritin or Wendi daily include Sudafed plain in a.m. Steroids as directed--take with food Mucinex drink plenty of fluids wire taking this medication heat to the face 20-30 minutes 4-6 times a day for pain Salt water gargles, throat lozenges or throat sprays as desired Alternate Tylenol and ibuprofen for fever pain take her temperature area 4 hours Must be fever free for 24 hours without use of Tylenol or ibuprofen for can return to work on average about 5 days from start of symptoms Patient Language: Kazakh Prescriptions: New prednisone 20 mg tablet 40 mg PO DAILY 5 Days Qty: 10 0RF ondansetron 4 mg tablet,disintegrating 4 mg PO Q6H PRN (Reason: nausea and vomiting) Qty: 20 0RF Follow-up/Referrals: UNKNOWN,DOCTOR [Primary Care Provider] - Stand Alone Forms: Work/School Release IP Time of Disposition: 18:53 Quality [place] Coma Scale Eyes: Open Verbal: Oriented and Alert Motor: Follows Commands [place] Coma Total Score: 15
[2024-06-01 18:49] LABS: EDCOVIDSCREEN Negative (Negative); EDINFLUASCREEN Positive (Negative); EDINFLUBSCREEN Negative (Negative); EDSTREPNEGPOS1 Negative (Negative)
--- OUTSIDE RECORDS SUMMARY | 2024-06-01 18:51 | XMS_ITS | Referral Summary ---
Author Organization [facility] [employer] Address [address] [place] [address] Care Team Providers Care Concreting Supervisor Name Role Phone Darrick Tanner [employer] Primary Care Provider [phone] Source Comments [facility],non-owned Affiliates and Associated Physician Practices is amultiple site organization consisting of ambulatory clinics and hospital sitesin [place], [place], [place]. This disclosure is being madepursuant to the Care Everywhere program and may not contain all information available regarding this patient. Last updated 18.[facility] Allergies No known active allergies Medications * Be aware that medications may not be up to date on this document. Alwaysverify current medications with the patient. Medication Sig Dispensed Refills Start Date End Date Status Vit-Fe Fumarate-FA ( vitamin) 28-0.8 MG tablet Take 1 (one) tablet by mouth once daily Active ondansetron, disintegrating, (Zofran ODT) 4 MG tablet Take 1 (one) tablet by mouth every 6 hours as needed for Nausea/Vomiting Allow tablet to dissolve on the tongue 60 tablet 2 03/06/2023 Active promethazine (Phenergan) 25 MG suppositoryIndica tions:Nausea and vomiting, unspecified vomiting type Insert 1 (one) suppository into the rectum every 6 hours as needed for Nausea/Vomiting 20 suppository 03/06/2023 Active prochlorperazine (Compazine) 10 MG tablet Take 1 (one) tablet by mouth every 6 hours as needed for Nausea/Vomiting 60 tablet 03/06/2023 Active folic acid (Folvite) 1 MG tablet Take 1 (one) tablet by mouth once daily 60 tablet 2 03/07/2023 Active metoclopramide (Reglan) 10 MG tablet Take 1 (one) tablet by mouth 3 times daily before meals 60 tablet 2 03/06/2023 Active famotidine (Pepcid) 20 MG tablet Take 1 (one) tablet by mouth 2 times daily 60 tablet 2 03/06/2023 Active Active Problems Problem Noted Date Diagnosed Date Primigravida, antepartum 03/05/2023 Scoliosis of thoracic spine 03/05/2023 Hypokalemia 03/05/2023 Severe malnutrition 03/05/2023 IBS (irritable bowel syndrome) 03/05/2023 Osteoarthritis of thoracic spine 03/05/2023 Contact dermatitis due to cosmetics 10/11/2015 Overview (07/15/2017): ICD-10 Update Other viral warts 06/10/2015 Social History Tobacco Use Types Packs/Day Years Used Date Smoking Tobacco: Never Smokeless Tobacco: Never Tobacco Cessation:Counseling Given: Not Answered Alcohol Use Standard Drinks/Week Comments Not Currently 0 (1 standard drink = 0.6 oz pur e alcohol) AUDIT-C Answer Date Recorded Q1: How often do you have a drink containing alc ohol? Never 04/10/2021 Q2: How many drinks containi ng alcohol do you have on a typical day when you are drinking? 1 or 2 04/10/2021 Q3: How often do you have six or more drinks on one occasion? Never 04/10/2021 Overall Financial Resource Strain (CARDIA) Answe r Date Recorded How hard is it for you to pa y for the very basics like food, housing, medical care, and heating? Not hard at all 03/05/2023 [facility] [place] [facility] Occupat ional [facility] - Occupational Stress Questionnaire Answer Date Recorded Do you feel stress - tense, restless, nervous, or anxious, or unable to sleep at night because your mind is troubled all the time - these days? Not at all 03/05/2023 Hunger Vital Sign Answer Date Recorded Within the past 12 months, y ou worried that your food would run out before you got the money to buy more. Never true 03/05/20 23 Within the past 12 months, t he food you bought just didn't last and you didn't have money to get more. Never true 03/05/2023 PRAPARE - Transportation Answer Date Re corded In the past 12 months, has l ack of transportation kept you from medical appointments or from getting medications? No 02/14 In the past 12 months, has l ack of transportation kept you from meetings, work, or from getting things needed for daily living? No 03/05/2023 Housing Stability Vital Sign Answer Mick e Recorded In the last 12 months, was t here a time when you were not able to pay the mortgage or rent on time? No 03/05/2023 In the last 12 months, how many places have you lived? 1 03/05/2023 In the last 12 months, was t here a time when you did not have a steady place to sleep or slept in a mcc (including now)? No 03/05/2023 Sex and Gender Information Value Date Recorded Sex Assigned at Not on file Gender Identity Not on file Sexual Orientation Not on file Last Filed Vital Signs Vital Sign Reading Time Taken Comments Blood Pressure 112/57 03/06/2023 7:40 AM JIG BUILDER HELPER Pulse 102 03/06/2023 7:40 AM JIG BUILDER HELPER Temperature 36.6 C (97.8 F) 03/06/2023 7:40 AM JIG BUILDER HELPER Respiratory Rate 16 03/06/2023 7:40 AM JIG BUILDER HELPER Oxygen Saturation 99% 03/06/2023 7:40 AM JIG BUILDER HELPER Inhaled Oxygen Concentration - - Weight 59 kg (130 lb) 03/05/2023 4:07 AM JIG BUILDER HELPER Height 162.6 cm (5' 4 ) 03/05/2023 4:07 AM JIG BUILDER HELPER Body Mass Index 22.31 03/05/2023 4:07 AM JIG BUILDER HELPER Plan of Treatment Not on file Additional Health Concerns Infection Onset Date Last Indicated ESBL GNR 03/05/2023 03/05/2023 Advance Directives * Full Code (Latest Code Status on File) Date Activated Date Inactivated Comments 03/05/2023 5:53 AM 03/06/2023 4:44 PM Care Teams Concreting Supervisor Relationship Specialty Start Date End Date Darrick Tanner, [employer] PCP - General 01/24/15
--- OUTSIDE RECORDS SUMMARY | 2024-06-01 18:51 | XMS_ITS | Encounter Summary ---
Author Organization [facility] Address [address] [facility] [place] [address] Phone Care Team Providers Care [employer] Name Role Phone Aguilar Suarez Primary Care Provider [phone] Encounter Details Date Type Department Care Team (Late st Contact Info) Description 05/19/2020 Transcribe Orders [facility] Preop/Pacu II [address] [place] [id number] Jamie Willett, DO [address] [place] [address] Pre-op testing (Primary Dx) Social History Tobacco Use Types Packs/Day Years Used Date Smoking Tobacco: Former Cigarettes 0.3 16.8 2 004 - 02/15/2020 Smokeless Tobacco: Never Alcohol Use Standard Drinks/Week Comments Yes 0 (1 standard drink = 0.6 oz pur e alcohol) once in a while Sexually Active Control Partners Comments Yes Oral Contraceptive Male Comments No Sex and Gender Information Value Date Recorded Sex Assigned at Not on file Legal Sex Female 11:37 PM CDT Gender Identity Not on file Sexual Orientation Not on file COVID-19 Exposure Response Date Recorded In the last month, have you been in contact with someone who was confirmed or suspected to have Coronavirus / COVID-19? No / Unsure 05/18/2020 12:33 PM [facility] documented as of this encounter Plan of Treatment Not on file documented as of this encounter Results * (ABNORMAL) HEMOGLOBIN & HEMATOCRIT (H&H) (05/23/2020 8:44 AM [facility]) HEMOGLOBIN (HGB) 11.7(L) 12.0 - 15.8 g/dL 05/23/2020 9:14 AM [facility] HEMATOCRIT (HCT) 35.6(L) 36.0 - 47.0 % 05/23/2020 9:14 AM [facility] Blood Venipuncture / Unknown 05/23/2020 8:44 AM [facility] 05/23/2020 9:09 AM [facility] us Jamie Willett DO HEMATOLOGY ORDERABL ES Final Result [facility] [address] [place] [address] documented in this encounter Visit Diagnoses Diagnosis Pre-op testing- Primary Preoperative examination, unspecified documented in this encounter Care Teams [employer] Relationship Specialty Start Date End Date Aguilar Suarez, MARYANNE [address] [place] [address] PCP - General Physician Emergency Department Manager 07/04/16 documented as of this encounter
--- OUTSIDE RECORDS SUMMARY | 2024-06-01 18:51 | XMS_ITS | Patient Health Summary ---
Author Organization [facility] [place] Address [address] [place] [address] Care Team Providers Care Drug Room Clerk Name Role Phone Darrick Tanner PERSONNEL ADVISER-HUMAN RESOURCES ADVISOR Primary Care Provider [phone] Note from [facility],non-owned Affiliates and Associated Physician Practices is amultiple site organization consisting of ambulatory clinics and hospital sitesin [place], [place], [place] and [place]. This disclosure is being madepursuant to the Care Everywhere program and may not contain all information available regarding this patient. Last updated 18.[facility] Allergies No known active allergies Medications * Be aware that medications may not be up to date on this document. Alwaysverify current medications with the patient. * Vit-Fe Fumarate-FA ( vitamin) 28-0.8 MG tablet Take 1 (one) tablet by mouth once daily * ondansetron, disintegrating, (Zofran ODT) 4 MG tablet(Started 03/06/2023) Take 1 (one) tablet by mouth every 6 hours as needed for Nausea/Vomiting Allow tablet to dissolve on the tongue 2 refills by 03/05/2024 * promethazine (Phenergan) 25 MG suppository(Started 03/06/2023) Insert 1 (one) suppository into the rectum every 6 hours as needed for Nausea/Vomiting * prochlorperazine (Compazine) 10 MG tablet(Started 03/06/2023) Take 1 (one) tablet by mouth every 6 hours as needed for Nausea/Vomiting * folic acid (Folvite) 1 MG tablet(Started 03/07/2023) Take 1 (one) tablet by mouth once daily 2 refills by 03/05/2024 * metoclopramide (Reglan) 10 MG tablet(Started 03/06/2023) Take 1 (one) tablet by mouth 3 times daily before meals 2 refills by 03/05/2024 * famotidine (Pepcid) 20 MG tablet(Started 03/06/2023) Take 1 (one) tablet by mouth 2 times daily 2 refills by 03/05/2024 Active Problems Problem Noted Date Diagnosed Date Primigravida, antepartum 03/05/2023 Scoliosis of thoracic spine 03/05/2023 Hypokalemia 03/05/2023 Severe malnutrition 03/05/2023 IBS (irritable bowel syndrome) 03/05/2023 Osteoarthritis of thoracic spine 03/05/2023 Contact dermatitis due to cosmetics 10/11/2015 Other viral warts 06/10/2015 Social History Tobacco [...] and heating? Not hard at all 03/05/2023 [facility] - Occupational Stress [...] place to sleep or slept in a [place] facility (including now)? No 03/05/2023 Sex and Gender Information Value Date Recorded Sex Assigned at Not on file Gender Identity Not on file Sexual Orientation Not on file Last Filed Vital Signs Vital Sign Reading Time Taken Comments Blood Pressure 112/57 03/06/2023 7:40 AM [employer] Pulse 102 03/06/2023 7:40 AM [employer] Temperature 36.6 C (97.8 F) 03/06/2023 7:40 AM [employer] Respiratory Rate 16 03/06/2023 7:40 AM [employer] Oxygen Saturation 99% 03/06/2023 7:40 AM [employer] Inhaled Oxygen Concentration - - Weight 59 kg (130 lb) 03/05/2023 4:07 AM [employer] Height 162.6 cm (5' 4 ) 03/05/2023 4:07 AM [employer] Body Mass Index 22.31 03/05/2023 4:07 AM [employer] Procedures * CARDIAC RHYTHM STRIP ORDER(Performed 03/11/2023) * FERRITIN(Performed 03/06/2023) Performed for Antepartum anemia (HCC) * IRON + TRANSFERRIN PANEL(Performed 03/06/2023) Performed for Antepartum anemia (HCC) * MAGNESIUM BLOOD(Performed 03/06/2023) Performed for Nausea and vomiting, unspecified vomiting type * RENAL FUNCTION PANEL(Performed 03/06/2023) Performed for Nausea and vomiting, unspecified vomiting type * CBC W/O DIFFERENTIAL(Performed 03/06/2023) Performed for Nausea and vomiting, unspecified vomiting type * URINE DRUG SCREEN IMMUNOASSAY(Performed 03/05/2023) Performed for Nausea and vomiting, unspecified vomiting type * URINE MICROSCOPIC ONLY REFLEX TO CULTURE(Performed 03/05/2023) Performed for Nausea and vomiting, unspecified vomiting type * URINALYSIS REFLEX MICROSCOPIC REFLEX CULTURE(Performed 03/05/2023) Performed for Nausea and vomiting, unspecified vomiting type * CULTURE URINE(Performed 03/05/2023) Performed for Nausea and vomiting, unspecified vomiting type * US ABDOMEN LIMITED(Performed 03/05/2023) Performed for Primigravida, antepartum (HCC) * SONOGRAM - COMPLETE(Performed 03/05/2023) * AMYLASE BLOOD(Performed 03/05/2023) Performed for Primigravida, antepartum (HCC) * LIPASE BLOOD(Performed 03/05/2023) Performed for Primigravida, antepartum (HCC) * TYPE + SCREEN PANEL(Performed 03/05/2023) Performed for Nausea and vomiting, unspecified vomiting type * BLOOD TYPE VERIFICATION(Performed 03/05/2023) * PHOSPHORUS BLOOD(Performed 03/05/2023) Performed for Nausea and vomiting, unspecified vomiting type * MAGNESIUM BLOOD(Performed 03/05/2023) Performed for Nausea and vomiting, unspecified vomiting type * CBC W AUTO DIFFERENTIAL(Performed 03/05/2023) Performed for Nausea and vomiting, unspecified vomiting type * COMPREHENSIVE METABOLIC PANEL(Performed 03/05/2023) Performed for Nausea and vomiting, unspecified vomiting type * GLUCOSE - POINT OF CARE(Performed 03/05/2023) * MAGNESIUM BLOOD(Performed 04/10/2021) * BLOOD GASES HUSSEIN + COOX PANEL(Performed 04/10/2021) * TSH REFLEX FREE T4(Performed 04/10/2021) * LIPASE BLOOD(Performed 04/10/2021) * LACTIC ACID BLOOD(Performed 04/10/2021) * HCG BETA BLOOD QUANTITATIVE(Performed 04/10/2021) * COMPREHENSIVE METABOLIC PANEL(Performed 04/10/2021) * CBC W AUTO DIFFERENTIAL(Performed 04/10/2021) * ALCOHOL ETHYL BLOOD(Performed 04/10/2021) Results * CARDIAC RHYTHM STRIP ORDER (03/11/2023 11:49 PM [employer]) Narrative 03/11/2023 11:49 PM [employer] Ordered by an unspecified provider. Scanned Document CARDIAC SERVICES ORD ERABLES * (ABNORMAL) CBC W/O DIFFERENTIAL (03/06/2023 4:04 AM [employer]) Pathologist [facility] WBC 11.4(H) 4.4 - 10.7 x10E9/L 03/06/2023 5:18 AM [facility] RBC 3.11(L) 3.80 - 5.20 x10E12/L 03/06/2023 5:18 AM [facility] Hemoglobin 9.8(L) 12.0 - 15.6 gm/dL 03/06/2023 5:18 AM [facility] Hematocrit 29.9(L) 35.9 - 45.5 % 03/06/2023 5:18 AM [facility] MCV 96.1 80.7 - 98.3 fl 03/06/2023 5:18 AM [facility] MCH 31.5 26.7 - 34.0 pg 03/06/2023 5:18 AM [facility] MCHC 32.8 30.8 - 35.9 gm/dL 03/06/2023 5:18 AM [facility] Platelet Count 123(L) 153 - 416 x10E9/L 03/06/2023 5:18 AM [facility] RDW-CV 13.4 12.1 - 14.9 % 03/06/2023 5:18 AM [facility] MPV 9.7 9.4 - 12.9 fl 03/06/2023 5:18 AM [facility] Blood BLOOD SPECIMEN / Unknown Lab Venipuncture / Unknown 03/06/2023 4:04 AM [employer] 03/06/2023 5:06 AM [facility] Suzette Tristan MD LAB - HEMATOLOGY OR DERABLES Performing Organization Address City/State/[facility] Co de Phone Number [facility] [address], [place] [phone] * (ABNORMAL) RENAL FUNCTION PANEL (03/06/2023 4:04 AM [employer]) [facility] Glucose 97 70 - 105 mg/dL 03/06/2023 5:37 AM [facility] Sodium 135(L) 136 - 145 mmol/L 03/06/2023 5:37 AM [facility] Potassium 3.8 3.5 - 5.1 mmol/L 03/06/2023 5:37 AM [facility] Chloride 103 98 - 107 mmol/L 03/06/2023 5:37 AM [facility] CO2 22 22 - 29 mmol/L 03/06/2023 5:37 AM [facility] Calcium 8.1(L) 8.4 - 10.4 mg/dL 03/06/2023 5:37 AM [facility] Anion Gap 10 6 - 16 mmol/L 03/06/2023 5:37 AM [facility] BUN 4(L) 5.3 - 18.7 mg/dL 03/06/2023 5:37 AM [facility] Creatinine 0.64 0.57 - 1.11 mg/dL 03/06/2023 5:37 AM [facility] Albumin 2.3(L) 3.4 - 5.0 gm/dL 03/06/2023 5:37 AM [facility] Phosphorus 2.4 2.3 - 4.7 mg/dL 03/06/2023 5:37 AM [facility] eGFR by CKD-EPI >90 >=90 mL/min/1.7 3 m2 03/06/2023 5:37 AM [facility] Blood BLOOD SPECIMEN / Unknown Lab Venipuncture / Unknown 03/06/2023 4:04 AM [employer] 03/06/2023 5:07 AM [employer] Suzette Tristan MD LAB - CHEMISTRY ORD ERABLES [facility] [address] [place] [phone] * (ABNORMAL) MAGNESIUM BLOOD (03/06/2023 4:04 AM [employer]) Only the most recent of3 resultswithin the time period is included. Magnesium 1.5(L) 1.6 - 2.6 mg/dL 03/06/2023 5:37 AM [facility] Blood BLOOD SPECIMEN / Unknown Lab Venipuncture / Unknown 03/06/2023 4:04 AM [employer] 03/06/2023 5:07 AM [employer] Suzette Tristan MD LAB - CHEMISTRY ORD ERABLES Performing Organization Address [facility] Co de Phone Number [facility] [address] [place] [phone] * (ABNORMAL) IRON + TRANSFERRIN PANEL (03/06/2023 4:04 AM [employer]) [facility] Iron 13(L) 40 - 150 ug/dL 03/06/2023 6:40 AM [employer] [facility] Transferrin 227 174 - 382 mg/dL 03/06/2023 6:40 AM [employer] [facility] TIBC Calculated 284 240 - 450 ug/dL 03/06/2023 6:40 AM [employer] [facility] Iron Saturation % 5(L) 20 - 50 % 03/06/2023 6:40 AM [employer] [facility] Blood BLOOD SPECIMEN / Unknown Lab Venipuncture / Unknown 03/06/2023 4:04 AM [employer] 03/06/2023 5:07 AM [employer] Suzette Tristan MD LAB - CHEMISTRY ORD ERABLES Performing Organization Address [facility] Co de Phone Number [facility] [address] [place] [phone] * FERRITIN (03/06/2023 4:04 AM [employer]) [facility] Ferritin 115 5 - 204 ng/mL 03/06/2023 6:56 AM [facility] Blood BLOOD SPECIMEN / Unknown Lab Venipuncture / Unknown 03/06/2023 4:04 AM [employer] 03/06/2023 5:07 AM [employer] Suzette Tristan MD LAB - CHEMISTRY ORD ERABLES Performing Organization Address City/[facility] Co de Phone Number [facility] [address] [place] [phone] * (ABNORMAL) URINE DRUG SCREEN IMMUNOASSAY (03/05/2023 8:42 PM [employer]) [facility] Amphetamines Screen Urine Not detected Not detected 03/05/2023 9:13 PM [employer] [facility] Barbiturates Screen Urine Not detected Not detected 03/05/2023 9:13 PM [employer] [facility] Benzodiazepines Screen Urine Not detected Not detected 03/05/2023 9:13 PM [employer] [facility] Cannabinoids Screen Urine Not detected Not detected 03/05/2023 9:13 PM [employer] [facility] Cocaine Screen Urine Detected(A) Not detected 03/05/2023 9:13 PM [employer] [facility] Fentanyl Urine Not detected Not detected 03/05/2023 9:13 PM [employer] [facility] Methadone Screen Urine Not detected Not detected 03/05/2023 9:13 PM [employer] [facility] Opiate Screen Urine Not detected Not detected 03/05/2023 9:13 PM [employer] [facility] Phencyclidine Screen Urine Not detected Not detected 03/05/2023 9:13 PM [employer] [facility] Urine URINE / Unknown Collection / Unknown 03/05/2023 8:42 PM [employer] 03/05/2023 8:54 [address] [employer] - 03/05/2023 9:13 PM [employer] This drug screen is designed for MEDICAL purposes only. It is not to be used for legal purposes, including but not limited to worker's comp, police investigations, occupational issues, child custody, etc. Any positive result is only presumptive and must be confirmed with a separate confirmatory test ordered by the physician. Drug Screening Test Cutoff Values: AMPHETAMINES 1000 ng/mL BARBITURATES 200 ng/mL BENZODIAZEPINES 200 ng/mL CANNABINOIDS(THC) 50 ng/mL COCAINE 300 ng/mL FENTANYL 1 ng/mL METHADONE 300 ng/mL OPIATES 300 ng/mL PHENCYCLIDINE(PCP) 25 ng/mL Suzette Tristan MD LAB - URINE SPORTS INTERN RY ORDERABLES [facility] [address], [place] [phone] * (ABNORMAL) URINE MICROSCOPIC ONLY REFLEX TO CULTURE (03/05/2023 8:41 PM [employer]) Reflex Status Culture to follow 03/05/2023 9:02 PM [employer] [facility] RBC UA 0-2 0 - 5 # /hpf 03/05/2023 9:02 PM [employer] [facility] WBC UA 6-10(A) 0 - 5 # /hpf 03/05/2023 9:02 PM [employer] [facility] Bacteria UA 3+(A) None Seen 03/05/2023 9:02 PM [facility] Squamous Epithelial Cells None Seen 0 - 5 /hpf 03/05/2023 9:02 PM [facility] Mucus UA 1+ /LPF 03/05/2023 9:02 PM [facility] Urine URINE SPECIMEN OBTAINED BY CLEAN CATCH PROCEDURE / Unknown Collection / Unknown 03/05/2023 8:41 PM [employer] 03/05/2023 8:54 PM [employer] Narrative [facility] - 03/05/2023 9:02 PM [employer] Suzette Tristan MD LAB - URINALYSIS OR DERABLES [facility] [address], [place] [phone] * (ABNORMAL) URINALYSIS REFLEX MICROSCOPIC REFLEX CULTURE (03/05/2023 8:41 PM [employer]) Color UA Yellow Straw, Yellow 03/05/2023 9:00 PM [facility] Clarity UA Clear Clear 03/05/2023 9:00 PM [facility] Glucose UA Negative Negative 03/05/2023 9:00 PM [facility] Bilirubin UA Negative Negative 03/05/2023 9:00 PM [facility] Ketone UA Negative Negative 03/05/2023 9:00 PM [facility] Specific [place] UA 1.003(L) 1.005 - 1.030 03/05/2023 9:00 PM [facility] Blood UA 1+(A) Negative 03/05/2023 9:00 PM [facility] pH UA 7.0 5.0 - 8.0 pH 03/05/2023 9:00 PM [facility] Protein UA Negative Negative 03/05/2023 9:00 PM [facility] Urobilinogen UA Negative Negative mg/dL 03/05/2023 9:00 PM [facility] Nitrite UA Positive(A) Negative 03/05/2023 9:00 PM [facility] Leukocyte UA 3+(A) Negative 03/05/2023 9:00 PM [facility] Urine Microscopy Urine microscopy to follow 03/05/2023 9:00 PM [facility] Reflex Status Culture to follow 03/05/2023 9:00 PM [employer] [facility] Urine URINE SPECIMEN OBTAINED BY CLEAN CATCH PROCEDURE / Unknown Collection / Unknown 03/05/2023 8:41 PM [employer] 03/05/2023 8:54 PM [employer] Narrative [facility] - 03/05/2023 9:00 PM [employer] Suzette Tristan MD LAB - URINALYSIS OR DERABLES Performing Organization Address City/State/[facility] Co de Phone Number [facility] [address] [place] [address] * (ABNORMAL) CULTURE URINE (03/05/2023 8:41 PM [employer]) Pathologist [facility] Culture Urine >100,000 CFU/mL Klebsiella pneumoniae extended-spect rum beta-lactamase (ESBL)(A) DAMIR 03/09/2023 1:37 [address] [employer] [facility] Urine URINE SPECIMEN OBTAINED BY CLEAN CATCH PROCEDURE / Unknown Collection / Unknown 03/05/2023 8:41 PM [employer] 03/05/2023 8:54 PM [employer] Narrative [facility] - 03/09/2023 1:37 AM [employer] Contact Precautions Required. Organism Antibiotic Method Susceptibility Klebsiella pneumoniae extended-spectrum beta-lactamase (ESBL) Amikacin DAMIR <=2 ug/mL: Susceptible Klebsiella pneumoniae extended-spectrum beta-lactamase (ESBL) Ampicillin-sulbactam DAMIR >=32 ug/mL: Resistant Klebsiella pneumoniae extended-spectrum beta-lactamase (ESBL) Cefazolin DAMIR >=64 ug/mL: Resistant Klebsiella pneumoniae extended-spectrum beta-lactamase (ESBL) Cefazolin-Urine (uncomplicated infections ONLY) DAMIR >=64 ug/mL: Resistant Klebsiella pneumoniae extended-spectrum beta-lactamase (ESBL) Cefepime DAMIR <=1 ug/mL: Susceptible Klebsiella pneumoniae extended-spectrum beta-lactamase (ESBL) Ceftriaxone DAMIR <=1 ug/mL: Susceptible Klebsiella pneumoniae extended-spectrum beta-lactamase (ESBL) Ciprofloxacin DAMIR <=0.25 ug/mL: Susceptible Klebsiella pneumoniae extended-spectrum beta-lactamase (ESBL) Extended-Spectrum Beta-Lactamase DAMIR POS ug/mL: Pos Klebsiella pneumoniae extended-spectrum beta-lactamase (ESBL) Gentamicin DAMIR <=1 ug/mL: Susceptible Klebsiella pneumoniae extended-spectrum beta-lactamase (ESBL) Meropenem DAMIR <=0.25 ug/mL: Susceptible Klebsiella pneumoniae extended-spectrum beta-lactamase (ESBL) Nitrofurantoin DAMIR 64 ug/mL: Intermediate Klebsiella pneumoniae extended-spectrum beta-lactamase (ESBL) Piperacillin-tazobactam DAMIR 64 ug/mL: Intermediate Klebsiella pneumoniae extended-spectrum beta-lactamase (ESBL) Tobramycin DAMIR <=1 ug/mL: Susceptible Klebsiella pneumoniae extended-spectrum beta-lactamase (ESBL) Trimethoprim-sulfamethoxaz ole DAMIR <=20 ug/mL: Susceptible Comment: Extended-spectrum beta-lactamase (ESBL) producing organism. Beta-lactam/beta-lactamase inhibitor combinations may not be effective for treatment of bloodstream infections and other severe infections regardless of in vitro susceptibility testing results. Infectious Disease consult recommended. Contact precautions required. Urine breakpoints for cefazolin should only be used when treating uncomplicated UTIs including men and women without urologic abnormality, kidney stones, stents, nephrostomy tubes, signs/symptoms of systemic illness, or pelvic/perineal pain in men. Cefazolin results can be used to predict susceptibility to oral cephalosporins - cephalexin, cefprozil, cefaclor, cefuroxime, cefdinir, and cefpodoxime. For complicated UTIs, use alternative cefazolin susceptibility result above. Suzette Tristan MD LAB - MICROBIOLOGY ORDERABLES [facility] [address] [place] [address], [facility] [phone] * US ABDOMEN LIMITED (03/05/2023 3:06 PM [employer]) Anatomical Region Laterality Modality Abdomen Ultrasound 03/05/2023 3:46 PM [employer] Impressions 03/05/2023 3:47 PM [employer] IMPRESSION: Cholecystectomy. No evidence for biliary dilatation. Significant hydronephrosis of the right kidney likely secondary to patient's uterus. > Interpreting Provider: Rolly Farris MD on 03/05/2023 3:47 PM Narrative 03/05/2023 3:47 PM [employer] Procedure: US ABDOMEN LIMITED Exam Date: 03/05/2023 3:06 PM Location: [facility] Indication: Z34.00: Encounter for supervision of normal first , unspecified trimester Findings/impression: Real-time sonography of the right upper quadrant was performed. The pancreas is unremarkable. The liver is homogeneous in echotexture. There is no liver mass. There is no intrahepatic biliary dilatation. There is hepatopedal flow within the portal vein. The hepatic veins are patent. The common bile duct measured 5 mm. There are no ductal stones. The patient is status post cholecystectomy. There is significant hydronephrosis of the right kidney likely secondary to patient's uterus. There is a questionable nonobstructing calculus in the midpole of the kidney. Procedure Note Rolly Farris MD - 03/05/2023 Procedure: US ABDOMEN LIMITED Exam Date: 03/05/2023 3:06 PM Location: [facility] Indication: Z34.00: Encounter for supervision of normal first , unspecified trimester Findings/impression: Real-time sonography of the right upper quadrantwas performed. The pancreas is unremarkable. The liver is homogeneous in echotexture. There is no liver mass.There is no intrahepatic biliary dilatation. There is hepatopedal flowwithin the portal vein. The hepatic veins are patent. The common bile duct measured 5 mm. There are no ductal stones. The patient is status post cholecystectomy. There is significant hydronephrosis of the right kidney likely secondaryto patient's uterus. There is a questionable nonobstructingcalculus in the midpole of the kidney. IMPRESSION: Cholecystectomy. No evidence for biliary dilatation. Significant hydronephrosis of the right kidney likely secondary to patient's uterus. > Interpreting Provider: Rolly Farris MD on 03/05/2023 3:47 PM Suzette Tristan MD US ORDERABLES * SONOGRAM - COMPLETE (03/05/2023 1:13 PM [employer]) Anatomical Region Laterality Modality Other 03/05/2023 1:13 PM [employer] Narrative 03/05/2023 2:54 PM [employer] [facility] [place] PHONE: FAX: Pat. Name: PARAMJIT RODAS. No: [id number] Study Date: 03/05/2023 1:13pm , Age: 03 1985, 37 Pregnancies: 4, Para 3 Height: 64 in Weight: 105 lb LMP: Unknown GA by US: 20w2d ALE: 07/21/2023 GA Selected: 20w5d (From Known E) ALE: 07/18/2023 Referring MD: Amauri Engel MD Head Of Commission Department: Nancy Alexander RDMS CPT4: 73339 BMI: 18.02 Hist/Ind: Nausea/Vomiting Advanced maternal age, multigravida cfDNA: low-risk, male Per patient: placenta previa and marginal PCI on outside exam Covid in 2nd trimester MEASUREMENTS & AGE GROWTH EVALUATION Measurement GA Range Srce %for GA Ratios ----- ---- ------- BPD 4.6 cm 19w6d ([id number]) Hadl BPD 18% FL/BPD 0.73 HC 17.3 cm 19w6d (73a7r-64z8d) Hadl HC 9% FL/AC 0.21 AC 16.0 cm 21w1d (94j3b-07v7y) Hadl AC 56% HC/AC 1.08 (1.06 - 1.24) FL 3.3 cm 20w3d (49b7a-31z4z) Hadl FL 32% CI 0.73 (0.70 - 0.86) HL 3.2 cm 20w6d (10q8k-41z6m) George HL 53% Cere 2.2 cm 20w5d (15v8w-70k5p) Benjamin Cere50% GA for sonogram 20w2d (57j8o-62c4q) Weight Estimate: based on (BPD,HC,AC,FL) Avg Weight: 370 gm (316-424gm) Hadloc : 0lbs, 13oz Normal: 380 gm (284-475gm) Hadloc Wt% 44% for 20w5d Heart Rate: 147 bpm Amniotic Fluid Index: 03.9cm (Deepest Pocket) PROCEDURE, TECHNIQUE Technique: transabdominal EVAL, PLACENTA Presentation: variable Umbilical Cord: 3 Vessels, normal mid placental cord insertion Placenta: posterior Previa: no previa seen not low lying Heart Rate: 147 bpm Amniotic Fluid Volume: normal Anatomy!Normal!Abnormal!Suboptimal!Prev. Seen!Comments Cranium ! x ! ! ! ! Mdl (CSP/Thal! x ! ! ! ! Ventricles ! x ! ! ! ! Choroid Plexu! x ! ! ! ! Cerebellum ! x ! ! ! ! Cisterna M. ! x ! ! ! ! Nuchal Fold ! x ! ! ! ! Orbits ! x ! ! ! ! Profile ! x ! ! ! ! Nasal Bone ! x ! ! ! ! Lip ! x ! ! ! ! Spine ! x ! ! ! ! Lungs ! x ! ! ! ! 4 Chamber Hea! x ! ! ! ! LVOT ! x ! ! ! ! RVOT ! x ! ! ! ! 3 Vessel View! x ! ! ! ! 3 Vessel Trac! x ! ! ! ! Cross-over ! x ! ! ! ! Ductal Arch ! x ! ! ! ! Aortic Arch ! x ! ! ! ! Caval View ! x ! ! ! ! Situs ! x ! ! ! ! Diaphragm ! x ! ! ! ! Stomach ! x ! ! ! ! Bowel ! x ! ! ! ! Kidneys ! x ! ! ! ! Bladder ! x ! ! ! ! 3 Vessel Cord! x ! ! ! ! Cord In! x ! ! ! ! Upper Extremi! x ! ! ! ! Hands ! x ! ! ! ! Lower Extremi! x ! ! ! ! Feet ! x ! ! ! ! External Ana! x ! ! ! !Male Placental Cor! x ! ! ! !> 1cm from placental edge CLINICAL SUMMARY Inpatient secondary to nausea vomiting abdominal pain. She had low risk NIPT A single fetus is seen in variable presentation. The measurements today are consistent with appropriate growth for the ALE provided. The ALE is based on a prior ultrasound. The amniotic fluid volume is within normal limits. Normal appearing posterior placenta no evidence of a previa nor low-lying. Normal placental cord insertion. The anatomical survey showed no gross abnormalities. IMPRESSION: Single, live, intrauterine at 20w5d size is appropriate for gestational age by established ALE Amniotic fluid volume: within normal limits Normal appearing posterior placenta with mid placental cord insertion. No major malformations were seen within the limitations of ultrasound. Both ultrasound and screening have their limitations in detecting all congenital anomalies and chromosomal abnormalities/inherited disorders or genetic syndromes. RECOMMEND: Management as per in patient service. Thank you for allowing us the opportunity to care for your patient. cc: Inpatient at time of study Andrzej Guo DO <Electronic Signature> 03/05/2023 02:54pm Suzette Tristan MD [facility] ORDERABLES * LIPASE BLOOD (03/05/2023 11:18 AM SLAT BASKET TOP MAKER) Only the most recent of2 resultswithin the time period is included. Lipase 14 <60 U/L 03/05/2023 11:32 AM [employer] BASKET TOP MAKER [facility] Blood BLOOD SPECIMEN / Unknown Lab Venipuncture / Unknown 03/05/2023 11:18 AM [employer] BASKET TOP MAKER 03/05/2023 11:18 AM SL[employer] BASKET TOP MAKER Suzette Tristan MD LAB - CHEMISTRY ORD TagitoBLES Performing Organization Address City/[facility]/ZIP Co de Phone Number [facility] [address] [place], [place] [id number] * AMYLASE BLOOD (03/05/2023 11:18 AM SLAT BASKET TOP MAKER) Pathologist [facility] Amylase 52 25 - 125 U/L 03/05/2023 11:32 AM [facility] Blood BLOOD SPECIMEN / Unknown Lab Venipuncture / Unknown 03/05/2023 11:18 AM [employer] BASKET TOP MAKER 03/05/2023 11:18 AM SL[employer] BASKET TOP MAKER Suzette Tristan MD LAB - CHEMISTRY ORD ERABLES [facility] [address] [place], [place] [id number] * TYPE + SCREEN PANEL (03/05/2023 5:59 AM SLAT BASKET TOP MAKER) Pathologist [facility] ABO Rh O POS 03/05/2023 6:42 AM [employer] BASKET TOP MAKER [facility] Comment:No history; collect retype. Antibody Screen NEG 6:42 AM SL[employer] BASKET TOP MAKER [facility] Blood Bank BLOOD SPECIMEN / Unknown Venipuncture / Unknown 03/05/2023 5:59 AM SL[employer] BASKET TOP MAKER 03/05/2023 6:08 AM SL[employer] BASKET TOP MAKER Suzette Tristan MD LAB - BLOOD BANK OR DERABLES [facility] [address] [place] [address] * BLOOD TYPE VERIFICATION (03/05/2023 4:48 AM SLAT BASKET TOP MAKER) Pathologist [facility] ABO Rh O POS 03/05/2023 6:4 2 AM [employer] BASKET TOP MAKER [facility] Blood Bank BLOOD SPECIMEN / Unknown Lab Venipuncture / Unknown 03/05/2023 4:48 AM [employer] BASKET TOP MAKER 03/05/2023 6:18 AM [employer] B[employer]ET TOP MAKER Suzette Tristan MD LAB - BLOOD BANK OR DERABLES Performing Organization Address City/[facility] Co de Phone Number [facility] [address] [place] [address] * (ABNORMAL) CBC W AUTO DIFFERENTIAL (03/05/2023 4:48 AM SL[employer] BASKET TOP MAKER) Only the most recent of2 resultswithin the time period is included. [facility] WBC 9.2 4.4 - 10.7 x10E9/L 03/05/2023 4:58 AM [employer] BASKET TOP MAKER [facility] WBC Corrected 03/05/2023 4:58 AM SL[employer] BASKET TOP MAKER [facility] RBC 3.52(L) 3.80 - 5.20 x10E12/L 03/05/2023 4:58 AM [employer] TOP [employer] [facility] Hemoglobin 11.1(L) 12.0 - 15.6 gm/dL 03/05/2023 4:58 AM [employer] BASK[employer] TOP MAK[employer] [facility] Hematocrit 32.4(L) 35.9 - 45.5 % 03/05/2023 4:58 AM [employer] BASKET TOP MAKER [facility] MCV 92.0 80.7 - 98.3 fl 03/05/2023 4:58 AM [employer]ASKET TOP [employer] [facility] MCH 31.5 26.7 - 34.0 pg 03/05/2023 4:58 AM [employer] [facility] MCHC 34.3 30.8 - 35.9 gm/dL 03/05/2023 4:58 AM [facility] Platelet Count 146(L) 153 - 416 x10E9/L 03/05/2023 4:58 AM [facility] RDW-CV 13.2 12.1 - 14.9 % 03/05/2023 4:58 AM [facility] MPV 9.1(L) 9.4 - 12.9 fl 03/05/2023 4:58 AM [facility] Neutrophils % 90.6(H) 44.0 - 73.0 % 03/05/2023 4:58 AM [facility] Lymphocytes % 6.0(L) 20.0 - 43.0 % 03/05/2023 4:58 AM [facility] Monocytes % 1.9(L) 5.0 - 13.0 % 03/05/2023 4:58 AM [facility] Eosinophils % 0.8 0.0 - 6.0 % 03/05/2023 4:58 AM [facility] Basophils % 0.3 0.0 - 2.0 % 03/05/2023 4:58 AM [facility] Immature Granulocytes 0.4 0 - 1 % 03/05/2023 4:58 AM [facility] Neutrophil Absolute 8.37(H) 2.01 - 7.14 x10E9/L 03/05/2023 4:58 AM [facility] Lymphocytes Absolute 0.55(L) 1.07 - 3.94 x10E9/L 03/05/2023 4:58 AM [facility] Monocytes Absolute 0.18(L) 0.26 - 1.07 x10E9/L 03/05/2023 4:58 AM [facility] Eosinophils Absolute 0.07 0 - 0.47 x10E9/L 03/05/2023 4:58 AM [facility] Basophils Absolute 0.03 0 - 0.08 x10E9/L 03/05/2023 4:58 AM [facility] Immature Granulocytes Absolute 0.04 0.00 - 0.06 x10E9/L 03/05/2023 4:58 AM [facility] nRBC Auto 0 /100 WBC 03/05/2023 4:58 AM [facility] Blood BLOOD SPECIMEN / Unknown Venipuncture / Unknown 03/05/2023 4:48 AM [employer]ET [employer] MAKER 03/05/2023 4:53 AM [employer] B[employer]ET TOP MAKER Suzette Tristan MD LAB - HEMATOLOGY OR DERABLES [facility] [address] [place] [address] * (ABNORMAL) COMPREHENSIVE METABOLIC PANEL (03/05/2023 4:48 AM [employer]ASKET TOP MAKER) Only the most recent of2 resultswithin the time period is included. Glucose 103 70 - 105 mg/dL 03/05/2023 5:21 AM [facility] Sodium 136 136 - 145 mmol/L 03/05/2023 5:21 AM [facility] Potassium 2.8(L) 3.5 - 5.1 mmol/L 03/05/2023 5:21 AM [facility] Chloride 104 98 - 107 mmol/L 03/05/2023 5:21 AM [facility] CO2 23 22 - 29 mmol/L 03/05/2023 5:21 AM [facility] Calcium 9.2 8.4 - 10.4 mg/dL 03/05/2023 5:21 AM [facility] Anion Gap 9 6 - 16 mmol/L 03/05/2023 5:21 AM [facility] BUN 7 5.3 - 18.7 mg/dL 03/05/2023 5:21 AM [facility] Creatinine 0.61 0.57 - 1.11 mg/dL 03/05/2023 5:21 AM [facility] Alkaline Phosphatase 98 40 - 150 U/L 03/05/2023 5:21 AM [facility] ALT 16 0 - 55 U/L 03/05/2023 5:21 AM [facility] AST 39(H) 5 - 34 U/L 03/05/2023 5:21 AM [facility] Protein Total 6.4 6.4 - 8.3 gm/dL 03/05/2023 5:21 AM [facility] Albumin 2.6(L) 3.4 - 5.0 gm/dL 03/05/2023 5:21 AM [facility] Bilirubin Total 0.3 0.2 - 1.2 mg/dL 03/05/2023 5:21 AM [employer] [facility] eGFR by CKD-EPI >90 >=90 mL/min/1.7 3 m2 03/05/2023 5:21 AM [employer] [facility] Blood BLOOD SPECIMEN / Unknown Venipuncture / Unknown 03/05/2023 4:48 AM [employer]ET TOP MAKER 03/05/2023 4:54 AM [employer] BASKET TOP MAKER Suzette Tristan MD LAB - CHEMISTRY ORD ERABLES Performing Organization Address City/[facility]/ZIP Co de Phone Number [facility] [address] [place] [phone] * (ABNORMAL) PHOSPHORUS BLOOD (03/05/2023 4:48 AM SL[employer] BASK[employer] TOP MAKER) Phosphorus 2.2(L) 2.3 - 4.7 mg/dL 03/05/2023 5:21 AM [employer] [facility] Blood BLOOD SPECIMEN / Unknown Venipuncture / Unknown 03/05/2023 4:48 AM [employer] TOP MAK[employer] 03/05/2023 4:54 AM [employer] TOP MAKER Suzette Tristan MD LAB - CHEMISTRY ORD ERABLES Performing Organization Address [facility] Co de Phone Number [facility] [address] [place] [phone] * GLUCOSE - POINT OF CARE (03/05/2023 4:32 AM SL[employer] MAKER) Glucose WB/POC 101 70 - 106 mg/dL 03/05/2023 4:39 AM [employer] [facility] Specimen Type Venous 03/05/2023 4:39 AM [employer] [facility] Blood BLOOD SPECIMEN / Unknown 03/05/2023 4:32 AM [employer] TOP MAKER 03/05/2023 4:39 AM [employer] TOP MAKER Suzette Tristan MD LAB - POINT OF CARE ORDERABLES Performing Organization Address [facility]/ZIP Co de Phone Number [facility] [address] [place] [phone] * (ABNORMAL) BLOOD GASES HUSSEIN + COOX PANEL (04/10/2021 6:06 PM [facility]) pH Venous 7.45(H) 7.32 - 7.42 pH 04/10/2021 6:17 PM [facility] pO2 Venous 74(H) 35 - 40 mmHg 04/10/2021 6:17 PM [facility] pCO2 Venous 42 40 - 50 mmHg 04/10/2021 6:17 PM [facility] HCO3 Venous 29.2 20 - 30 mmol/L 04/10/2021 6:17 PM [facility] Base Excess Venous 4.6(H) -2.0 - 2.0 mmol/L 04/10/2021 6:17 PM [facility] Oxyhemoglobin Venous 93.0 % 03/16 6:17 PM [facility] Deoxyhemoglobin (HHB) Venous % 3.5 % 04/10/2021 6:17 PM [facility] Methemoglobin 0.9 0.0 - 2.0 % 04/10/2021 6:17 PM [facility] Carboxyhemoglobin 2.6(H) 0.0 - 2.0 % 2020 6:17 PM [facility] O2 Content Venous 21.0 Interpret within clinical context mg/dL 04/10/2021 6:17 PM [facility] Hemoglobin by COOX 16.1(H) 12.0 - 15.6 g/dL 04/10/2021 6:17 PM [facility] O2 Saturation Venous 96 >=70 % 03/16 6:17 PM [facility] FI O2 Mixed Venous 21.0 % 2020 6:17 PM [facility] Blood BLOOD SPECIMEN / Unknown Venipuncture / Unknown 04/10/2021 6:06 PM [facility] 04/10/2021 6:[address] [facility] - 04/10/2021 6:17 PM [facility] Carboxyhemoglobin Normal Concentration: Non-smokers: 0-2%; Smokers: 0-9%; Toxic: >20% Rajeev Irving MD LAB - BLOOD GASES OR DERABLES Performing Organization Address City/[facility]/ZIP Co de Phone Number [address] [address], [place] [phone] * TSH REFLEX FREE T4 (04/10/2021 6:06 PM [employer]) [facility] TSH 0.373 0.350 - 4.940 uIU/mL 04/10/2021 7:05 PM [employer] [facility] Blood BLOOD SPECIMEN / Unknown Venipuncture / Unknown 04/10/2021 6:06 PM [employer] 04/10/2021 6:16 PM [employer] Rajeev Irving MD LAB - CHEMISTRY [place] Performing Organization Address [facility] Co de Phone Number [address] [address], [place] [phone] * HCG BETA BLOOD QUANTITATIVE (04/10/2021 6:06 PM [employer]) [facility] Beta-hCG Total Quantitative <3 <5 mIU/mL 04/10/2021 7:05 PM [employer] [facility] Comment: This assay is cleared for use in the early detection of only. It is not approved for any other uses such as tumor marker screening, tumor marker monitoring, etc. and should not be used for any other purposes. HCG Numeric Result Interpretation: Non- Females: < 5 mIU/mL Post-Menopausal Females: < 7 mIU/mL Blood BLOOD SPECIMEN / Unknown Venipuncture / Unknown 04/10/2021 6:06 PM [employer] 04/10/2021 6:16 PM [employer] Rajeev Irving MD LAB - CHEMISTRY [place] Performing Organization Address City/[facility]/ZIP Co de Phone Number [address] [address], [place] [phone] * LACTIC ACID BLOOD (04/10/2021 6:06 PM [employer]KER) [facility] Lactic Acid-Stat 1.5 <=2.0 mmol/L 04/10/2021 6:38 PM [employer] [facility] Blood BLOOD SPECIMEN / Unknown Venipuncture / Unknown 04/10/2021 6:06 PM [employer] 04/10/2021 6:16 PM [employer] Rajeev Irving MD LAB - CHEMISTRY [place] Performing Organization Address [facility]/ZIP Co de Phone Number [facility] [address] [place] [address], [facility] [phone] * ALCOHOL ETHYL BLOOD (04/10/2021 6:06 PM [employer]) Ethanol (mg/dL) <10 <10 mg/dL 6:46 PM [employer] [facility] Ethanol Calculated (g/dL) <0.010 <0.010 g/dL 04/10/2021 6:46 PM [employer] [facility] Blood BLOOD SPECIMEN / Unknown Venipuncture / Unknown 04/10/2021 6:06 PM [employer] 04/10/2021 6:16 PM [employer]KER Narrative [facility] - 04/10/2021 6:46 PM [employer] Ethanol Interp <10: None Detected. Depression of REGISTERED NURSE FLOAT POOL: >100 mg/dl Potentially Critical: >250 mg/dl Potentially Fatal >400 mg/dl Ethanol in the patient's blood will contribute to the osmolar gap. Ethanol's contribution to the osmolar gap can be estimated by dividing the concentration of ethanol in mg/dL by 4.6. This test is for clinical use only and does not equal a ADELITA for legal purposes. Rajeev Irving MD LAB - CHEMISTRY [place] Performing Organization Address City/[facility]/ZIP Co de Phone Number [facility] [address] [place] [address], [place] [phone] Care Teams Drug Room Clerk Relationship Specialty Start Date End Date Darrick Tanner, PERSONNEL ADVISER-HUMAN RESOURCES ADVISOR PCP - General 01/24/15
--- OUTSIDE RECORDS SUMMARY | 2024-06-01 18:51 | XMS_ITS | Clinical Summary ---
Author Organization [facility] [employer] Address [address] [place] [address] Care Team Providers Care Aircraft Engine Mechanic Overhaul Name Role Phone Darrick Tanner GROUND HOST/HOSTESS-ADJUNCT ART HISTORY INSTRUCTOR Primary Care Provider [phone] [facility],non-owned Affiliates and Associated Physician Practices is amultiple site organization consisting of ambulatory clinics and hospital sitesin [place], [place], [place] and [place]. This disclosure is being madepursuant to the Care Everywhere program and may not contain all information available regarding this patient. Last updated 18.[employer] Allergies No known active allergies Medications * [...] (07/15/2017): ICD-10 Update Other viral warts 06/10/2015 Family History Medical History Relation Name Comments Cancer Mother skin precancer Relation Name Status Comments Mother Social History Tobacco Use Types Packs/Day Years [...] and heating? Not hard at all 03/05/2023 [facility] [place] [facility] Occup[facility] - Occupational Stress [...] place to sleep or slept in a skilled nursing (including now)? No 03/05/2023 Sex and Gender Information Value Date Recorded Sex Assigned at Not on file Gender Identity Not on file Sexual Orientation Not on file Last Filed Vital Signs Vital Sign Reading Time Taken Comments Blood Pressure 112/57 03/06/2023 7:40 AM INFORMATICS NURSE Pulse 102 03/06/2023 7:40 AM INFORMATICS NURSE Temperature 36.6 C (97.8 F) 03/06/2023 7:40 AM INFORMATICS NURSE Respiratory Rate 16 03/06/2023 7:40 AM INFORMATICS NURSE Oxygen Saturation 99% 03/06/2023 7:40 AM INFORMATICS NURSE Inhaled Oxygen Concentration - - Weight 59 kg (130 lb) 03/05/2023 4:07 AM INFORMATICS NURSE Height 162.6 cm (5' 4 ) 03/05/2023 4:07 AM INFORMATICS NURSE Body Mass Index 22.31 03/05/2023 4:07 AM INFORMATICS NURSE Plan of Treatment Health Maintenance Due Date Last Done Comments PAP SMEAR 1985 HIV SCREENING 2000 HEPATITIS C SCREENING 06/20/2003 DTAP/TDAP/TD VACCINES (1 - Tdap) 2004 HEPATITIS B VACCINE (1 of 3 - 19+ 3-dose series) 2004 COVID-19 VACCINE ( - 2023-2 5 season) 2023 07/11/2020, 06/11/2020 INFLUENZA VACCINE (#1) 2023 01/15/2017 DEPRESSION SCREENING 04/15/2024 ZOSTER VACCINE (1 of 2) 06/25/2035 HIB VACCINE Aged Out No longer eligi ble based on patient's age to complete this topic HPV VACCINE Aged Out No longer eligi ble based on patient's age to complete this topic MENINGOCOCCAL (Group B) VACCINE Aged Out No longer eligible b ased on patient's age to complete this topic MENINGOCOCCAL VACCINE Aged Out No dewayne yves eligible based on patient's age to complete this topic PNEUMOCOCCAL VACCINE Aged Out No long er eligible based on patient's age to complete this topic Additional Health Concerns Infection Onset Date Last Indicated ESBL GNR 03/05/2023 03/05/2023 Advance Directives * Full Code (Latest Code Status on File) Date Activated Date Inactivated Comments 03/05/2023 5:53 AM 03/06/2023 4:44 PM Care Teams Aircraft Engine Mechanic Overhaul Relationship Specialty Start Date End Date Darrick Tanner, GROUND HOST/HOSTESS-ADJUNCT ART HISTORY INSTRUCTOR PCP - General 01/24/15
--- OUTSIDE RECORDS SUMMARY | 2024-06-01 18:51 | XMS_ITS | Clinical Summary ---
Author Organization [facility] Address [address] [place] [address] Phone Care Team Providers Care Manufacturing Technology Professor Name Role Phone Aguilar Suarez Primary Care Provider [phone] Allergies No known active allergies Medications Norgestim-Eth Estrad Triphasic ([id number] C PO)Indications: DAILY FOR 28 DAYS REPEAT MONTHLY Take 1 Tab by mouth. Indications: DAILY FOR 28 DAYS REPEAT MONTHLY Active nicotine (NICODERM CQ) 21 MG/24HR PATCH 24 HR 1 Patch by Transdermal route daily as needed for Other (Nicotine dependency). 30 Patch 2 Active potassium chloride SA (KLORCON M) 20 MEQ Tablet Controlled Release Take 1 Tablet by mouth daily. 90 Tablet 2 Active Active Problems Problem Noted Date Diagnosed Date Acute vomiting 08/28/2021 Abdominal pain, acute, epigastric 08/28/2021 Cannabinoid hyperemesis syndrome 08/28/2021 Severe malnutrition 08/28/2021 S/P laparoscopic cholecystectomy 06/14/2020 Biliary dyskinesia 05/17/2020 Irritable bowel syndrome 05/17/2020 Immunizations Immunization Administration Dates Next Due Covid-19, Mrna, Lnp-s, Pf, 30 Mcg/0.3 Ml Dose (P fizer) 07/11/2020,06/11/2020 Influenza, Injectable, Quadrivalent 01/15/2017 MMR Vaccine 12/26/2015 Family History Medical History Relation Name Comments No Known Problems Brother 1 No Known Problems Brother 2 No Known Problems Daughter 1 No Known Problems Daughter 2 No Known Problems Daughter 3 Other-comment Father car accident No Known Problems Mother Relation Name Status Comments Brother 1 Alive Brother 2 Alive Daughter 1 Alive Daughter 2 Alive Daughter 3 Alive Father Mother Alive Social History Tobacco Use Types Packs/Day Years Used Date Smoking Tobacco: Former Cigarettes 0.3 16.8 2 004 - 02/15/2020 Smokeless Tobacco: Never Tobacco Cessation:Counseling Given: No Alcohol Use Standard Drinks/Week Comments Yes 0 [...] Sign Reading Time Taken Comments Blood Pressure 110/80 02/06/2022 3:41 AM CDT Pulse 84 02/06/2022 3:41 AM CDT Temperature 36.6 C (97.9 F) 02/06/2022 12:53 AM CDT Respiratory Rate 18 02/06/2022 3:41 AM CDT Oxygen Saturation 99% 02/06/2022 3:41 AM CDT Inhaled Oxygen Concentration - - Weight 47.2 kg (104 lb) 02/06/2022 12:53 AM CDT Height 162.6 cm (5' 4 ) 02/06/2022 12:53 AM CDT Body Mass Index 17.85 02/06/2022 12:53 AM CDT Plan of Treatment Health Maintenance Due Date Last Done Comments Hepatitis B Immunization (1 of 3 - 19+ 3-dose series) 2004 Pap Smear 2006 Cervical Cancer Screening (CCS) 06/25/2015 HPV/Cotest 06/25/2015 Influenza Immunization (#1) 2023 01/15/2017 SARS-COV-2 Immunization ( - season) 2023 07/11/2020, 06/11/2020 Respiratory Syncytial Virus (RSV) Immunization (Adult) (1 - 1-dose 75+ series) 2060 Hepatitis C Virus (HCV) Screening Completed 11/27/2019 DTaP/Tdap/Td Immunization Discontinued 01/09/2021 TdaP Immunization Completed 01/09/2021 Meningococcal Immunization (ACWY) Aged Out No longer eligible based on patient's age to complete this topic Pneumococcal Immunization Combined Aged Out No longer eligible based on patient's age to complete this topic Rotavirus Immunization Aged Out No lo nger eligible based on patient's age to complete this topic Procedures Procedure Name Priority Date/Time Associated Diagnosis Comments HEPATITIS PANEL ACUTE (AHP) Routine 11/27/2019 3:08 PM CDT Intractable vomiting with nausea, unspecified vomiting type from Last 3 Months or Most Recently Relevant to Health Maintenance Results * HEPATITIS PANEL ACUTE (AHP) (11/27/2019 3:08 PM CDT) HEPATITIS A IGM ANTIBODY NON DETECTED NON DETECTED 11/27/2019 10:47 PM CDT [facility] Comment: IGM Antibodies to HAV not detected. Does not exclude early acute or recovered HAV infection. HEP B CORE AB (IGM) NON DETECTED NON DETECTED 11/27/2019 10:47 PM CDT [facility] Comment:IGM anti-HBC not det ected. Does not exclude the possibility of exposure to or infection with HBV. HEPATITIS B SURFACE ANTIGEN NON DETECTED NON DETECTED 11/27/2019 10:47 PM CDT [facility] Comment:A nonreactive test r esult does not exclude the possibility of exposure to or infection with Hepatitis B virus. A nonreactive test result in individuals with prior exposure to hepatitis B may be due to antigen levels below the detection limit of this assay or lack of antigen reactivity to the antibodies in this assay. hepatitis C antibody 0.20 <1 S/CO 11/27/2019 10:47 PM CDT [facility] Comment: Signal/Cutoff ratio < 0.79 is Nondetected Signal/Cutoff ratio 0.80-0.99 is Grayzone Signal/Cutoff ratio > 0.99 is Detected Supplemental assays are recommended if signal/cutoff ratio is >/=1.00. Signal/cutoff ratio result >/= 5.00 is 97% predictive of positivity for recombinant immunoblot assay (RIBA) and will be reported to the [place] Department of Public [facility] as required. Blood Venipuncture / Unknown 11/27/2019 3:08 PM CDT 11/27/2019 3:08 PM CDT us Kayla Walters PAC HEMATOLOGY ORDERABLES Fin al Result [facility] [address] [place] [address], from Last 3 Months or Most Recently Relevant to Health Maintenance Insurance MEDICAID [place] Advance Directives * Full Code (Latest Code Status on File) Date Activated Date Inactivated Comments 08/28/2021 11:54 AM 08/29/2021 2:18 PM CPR-Full Tr eatment: FULL ARREST: Attempt Resuscitation/CPR wit intubation and mechanical ventilation. PRE-ARREST: Use entire range of life support measures to stabilize the patient. Care Teams Manufacturing Technology Professor Relationship Specialty Start Date End Date Aguilar Suarez, MARYANNE [address] [place] [address] PCP - General Physician Master Machinist 07/04/16
== END 2024-06-01 19:01 | disposition home or self-care (01) ==
PROVIDERS: Emergency Provider Registered Nurse
DX: J10.1 Influenza due to other identified influenza virus with other respiratory manifestations (principal); Z20.822 Contact with and (suspected) exposure to COVID-19
CPT/HCPCS: 87081; 87426; 87804; 87880; 99213; G0463